=== PATIENT | male | born 1960 | race Caucasian/White ===

== ENCOUNTER 2019-03-26 14:39 | Inpatient (IN) | payer BC ==
[~2019-03-26] VITALS: Ht 175.3 cm; Wt 75.8 kg
[~2019-03-26 14:39] MED LIST: ASPI-1071 PO; CLOP75TA33 PO; DOCU100C41 PO; FLO0.4C PO; METO50TA16 PO; NICO-631 TD; PRED20TA PO; SIMV20TA5 PO
[2019-03-26] MEDS ORDERED: nitroGLYCERIN 0.4mg SUBLingual tab SL PRN (14:50)
[2019-03-26] MEDS ORDERED: aspirin 81mg tab.chew PO ONE (14:50)
[2019-03-26] MEDS ORDERED: LIDOcaine Viscous 15ml cup MM PRN (15:15)
[2019-03-26] MEDS ORDERED: sucralfate 1gm/10ml UD suspension PO ONE (15:15)
[2019-03-26] MEDS ORDERED: pantoprazole 40 MG vial IV ONE (15:15)
[2019-03-26] MEDS ORDERED: famotidine/PF 10 mg/ml inj IV ONE (15:15)
[2019-03-26] MEDS ORDERED: mag hydrox/Alum hydrox/simeth 30ml oral suspension PO ONE (15:15)
[2019-03-26] MEDS ORDERED: sucralfate 1gm/10ml UD suspension PO SCH (15:15)
[2019-03-26] MEDS ORDERED: ESOMEPRAZOLE 40 MG VIAL IV STA (15:34)
--- NOTE | 2019-03-26 15:34 | NUR ---
protonix out of stock per pharmacy,Dr. Mitchell ordered nexium 40mg/ml.
[2019-03-26 15:40] LABS: BASOPHILS % (AUTO) 0.4 % (0-1); EOSINOPHILS # (AUTO) 0.1 X10'3 (0-0.9); EOSINOPHILS % (AUTO) 1.7 % (0-6); HEMATOCRIT 39.4 % (42.0-52.0); HEMOGLOBIN 13.1 g/dl (14.0-17.9); LYMPHOCYTES # (AUTO) 2.4 X10'3 (1.1-4.8); LYMPHOCYTES % (AUTO) 28.9 % (21-51); MEAN CORPUSCULAR HEMOGLOBIN 28.7 PG (27.0-31.0); MEAN CORPUSCULAR HGB CONC 33.2 g/dL (33.0-36.5); MEAN CORPUSCULAR VOLUME 86.5 FL (78-98); MEAN PLATELET VOLUME 7.5 FL (7.4-10.4); MONOCYTES # (AUTO) 0.8 X10'3 (0-0.9); MONOCYTES % (AUTO) 9.9 % (2-12); NEUTROPHILS % (AUTO) 59.1 % (42-75); PLATELET COUNT 179 X10'3 (140-440); RED BLOOD COUNT 4.55 X10'6 (4.70-6.10); RED CELL DISTRIBUTION WIDTH 18.9 % (11.5-14.5); WHITE BLOOD COUNT 8.4 X10'3 (4.5-11.0)
[2019-03-26 15:57] LABS: ALANINE AMINOTRANSFERASE 41 U/L (12-78); ALBUMIN 3.6 G/DL (3.4-5.0); ALBUMIN/GLOBULIN RATIO 0.9 (1.1-1.5); ALKALINE PHOSPHATASE 107 IU/L (46-116); ANION GAP 10 (8-16); ASPARTATE AMINO TRANSFERASE 155 U/L (10-37); BILIRUBIN,TOTAL 0.8 MG/DL (0.1-1.0); BLOOD UREA NITROGEN 9 MG/DL (7-18); BUN/CREATININE RATIO 10.3 (5.4-32.0); CHLORIDE 103 MMOL/L (99-107); CREATININE 0.87 MG/DL (0.60-1.10); GLUCOSE 97 MG/DL (70-104); MAGNESIUM 2.2 MG/DL (1.5-2.4); POTASSIUM 3.9 MMOL/L (3.5-5.1); SODIUM 138 MMOL/L (135-145); TOTAL CARBON DIOXIDE 25.2 MMOL/L (24-32); TOTAL PROTEIN 7.7 G/DL (6.4-8.2); eGFR 90 ML/MIN
[2019-03-26] MEDS ORDERED: heparin 25,000 UNIT/250ml bag 250 ML IV SCH (16:22)
[2019-03-26] MEDS ORDERED: heparin 10,000 units/1 ML INJ IV PRN (16:25)
[2019-03-26] MEDS ORDERED: heparin 10,000 units/1 ML INJ IV ONE ×2 (16:25→16:30)
[2019-03-26] MEDS ORDERED: atorvastatin 20mg tablet PO SCH (16:40)
[2019-03-26] MEDS ORDERED: mag hydrox/Alum hydrox/simeth 30ml oral suspension PO PRN (16:40)
[2019-03-26] MEDS ORDERED: potassium CL 10mEq/100ml bag 100 ML IV PRN (16:40)
[2019-03-26] MEDS ORDERED: magnesium 4gm in 100ml NS 100 ML IV PRN ×2 (16:40→23:20)
[2019-03-26] MEDS ORDERED: magnesium hydroxide 30ml (MOM) UD suspension PO PRN (16:40)
[2019-03-26] MEDS ORDERED: acetaminophen 325mg tablet PO PRN ×3 (16:40→23:20)
[2019-03-26] MEDS ORDERED: normal saline 1000ml 1,000 ML IV SCH (16:40)
[2019-03-26] MEDS ORDERED: magnesium Cl slow-release 64mg tablet PO PRN (16:40)
[2019-03-26] MEDS ORDERED: diphenhydrAMINE 25mg capsule PO PRN (16:40)
[2019-03-26] MEDS ORDERED: morphine 2 MG/ML inj. syringe IV PRN ×2 (16:40)
[2019-03-26] MEDS ORDERED: ondansetron/PF 4mg/2ml inj IV PRN (16:40)
[2019-03-26] MEDS ORDERED: potassium Cl 40MEQ/NS 500ml 500 ML IV PRN (16:40)
[2019-03-26] MEDS ORDERED: potassium Cl 20 mEq SR tablet PO PRN ×3 (16:40→23:20)
[2019-03-26] MEDS ORDERED: HYDROcodone/acetaminophen 5mg/325mg tablet PO PRN (16:40)
[2019-03-26] MEDS ORDERED: HYDROcodone/acetaminophen 10/325mg tab PO PRN ×2 (16:40→23:20)
[2019-03-26] MEDS ORDERED: K and/or MAG REPLACEMENT MC SCH (16:40)
[2019-03-26] MEDS ORDERED: magnesium 2GM in 50ml NS 50 ML IV PRN ×2 (16:40→23:20)
[2019-03-26 16:49] LABS: PARTIAL THROMBOPLASTIN TIME 29 SECONDS (22-32)
--- NOTE | 2019-03-26 16:50 | NUR ---
Dr. Justice at bedside,pt to go to garden labourer,2 piv stared on left ac and left forearm with heparin running 800ml/hr and ns with extension tubing.+ chapis's test,patient has history of 2 femoral stents.
[2019-03-26] MEDS ORDERED: iohexol 350 MG/1 ML 200ml bottle ONE (16:54)
[2019-03-26] MEDS ORDERED: midazolam 2 mg/2 ml injection ONE (16:54)
[2019-03-26] MEDS ORDERED: LIDOcaine 1% (10mg/ml)w/preservative injection 20ml MDV ONE (16:54)
[2019-03-26] MEDS ORDERED: heparin 1,000unit/ml 10ml vial 10 ML ONE (16:54)
[2019-03-26] MEDS ORDERED: fentaNYL/PF 50MCG/1 ML 2ML syringe ONE (16:54)
[2019-03-26] MEDS ORDERED: nitroGLYCERIN-Tridil 50MG/D5W 250 ML IV ONE (16:56)
[2019-03-26] MEDS ORDERED: verapamil 2.5 mg/ml inj IV ONE (16:56)
--- NOTE | 2019-03-26 17:06 | NUR ---
general laborer RNa t bedside taking patient to general laborer.
[2019-03-26] MEDS ORDERED: dextrose 50%-water 50ml dispensing syringe IV PRN ×2 (18:30→23:20)
[2019-03-26] MEDS ORDERED: NUT.TX.IMPAIRED DIGEST FXN (Ensure Clear) 237 ML PO ONE (18:30)
[2019-03-26] MEDS ORDERED: vancomycin/NS 1 GM ADD-VANTAGE 250 ML IV ONE (18:30)
[2019-03-26] MEDS ORDERED: insulin glargine (Lantus) pen - multi-dose SQ PRN (18:30)
[2019-03-26] MEDS ORDERED: MESSAGE TO NURSING PO ONE ×4 (18:30)
[2019-03-26] MEDS ORDERED: gabapentin 400mg capsule PO ONE (18:30)
[2019-03-26] MEDS ORDERED: cefazolin/dext.iso 2gm/100ml 100 ML IV ONE (18:45)
[2019-03-26] MEDS ORDERED: papaverine 30 mg/ml 2ml inj. ONE (19:00)
[2019-03-26] MEDS ORDERED: heparin 10,000 units/1 ML INJ ONE (19:00)
[2019-03-26] MEDS ORDERED: ROPIVAcaine 0.5% (5mg/ml) 30ml vial ONE (19:05)
[2019-03-26] MEDS ORDERED: MIDAZolam 1mg/ml 10ml vial ONE (19:10)
[2019-03-26] MEDS ORDERED: rocuronium 10mg/ml inj IV ONE ×2 (19:10)
[2019-03-26] MEDS ORDERED: SUFENTANIL CITRATE 50 MCG/ML 2ml ampule IV ONE (19:10)
[2019-03-26] MEDS ORDERED: sodium bicarbonate (8.4%) 1 mEq/ml syringe ONE (19:15)
[2019-03-26] MEDS ORDERED: calcium chloride 100 MG/1 ML inj IV ONE (19:15)
[2019-03-26] MEDS ORDERED: sevoflurane 250ml liquid IH ONE (19:15)
[2019-03-26] MEDS ORDERED: magnesium 1 GM/2 ML inj ONE (19:15)
[2019-03-26] MEDS ORDERED: phenylephrine 10mg/ml inj. ONE (19:15)
[2019-03-26] MEDS ORDERED: potassium Cl 2 mEq/ml inj IV ONE (19:15)
[2019-03-26] MEDS ORDERED: LIDOcaine 2% (20 mg/ml) 5ml cardiac syringe ONE (19:15)
[2019-03-26] MEDS ORDERED: albumin (human) 25% 100 ML IV solution IV ONE (19:15)
[2019-03-26] MEDS ORDERED: aminocaproic acid 250 MG/1 ML inj. ONE (19:15)
[2019-03-26] MEDS ORDERED: heparin 1,000 units/ml 10ml inj ONE (19:15)
[2019-03-26] MEDS ORDERED: NORepinephrine bitartrate 8 MG in NS 250 ML BAG (32 mcg/ml) IV ONE (19:15)
[2019-03-26] MEDS ORDERED: methylPREDNISolone sod succ 1000mg vial ONE (19:15)
[2019-03-26] MEDS ORDERED: protamine sulf. 10mg/ml inj. IV ONE (19:15)
[2019-03-26] MEDS ORDERED: ePHEDrine 50MG/ML INJ. ONE (19:16)
[2019-03-26] MEDS ORDERED: propofol inj 20 ML IV ONE (19:16)
[2019-03-26] MEDS ORDERED: mupirocin 2% nasal ointment 1gm UD NS SCH (20:00)
[2019-03-26] MEDS ORDERED: carVEDilol 3.125mg tablet PO SCH (20:00)
[2019-03-26] MEDS ORDERED: metoprolol tartrate 12.5mg (1/2 tablet) PO SCH (20:00)
[2019-03-26 20:10] LABS: ABG BASE EXCESS -0.8 mmol/L (-2.0-3.0); ABG HCO3 23.2 mmol/L (22.0-26.0); ABG OXYGEN SATURATION 99.6 % (95-98); ABG PCO2 36.2 mmHg (35.0-45.0); ABG PH 7.425 (7.350-7.450); ABG PO2 329.7 mmHg (60.0-100.0); CL (ABG) 106 mmol/L (99-107); FCOHb 1.8 % (0.5-1.5); FMetHb 0.1 % (0.3-1.12); FO2Hb 97.7 % (94-100); GLUCOSE (ABG) 97 mg/dl (70-105); IONIZED CA (ABG) 1.11 mmol/L (1.03-1.32); K (ABG) 3.6 mmol/L (3.3-5.1); NA (ABG) 138 mmol/L (135-145); TOTAL HEMOGLOBIN 12.6 G/dl (14.0-18.0)
[2019-03-26 20:55] LABS: ABG BASE EXCESS VENOUS -2.1 mmol/L; ABG HCO3 VENOUS 23.3 mmol/L; ABG PCO2 VENOUS 42.1 mmHg; ABG PO2 VENOUS 40.6 mmHg; CL (ABG) 105 mmol/L (99-107); FCOHb VENOUS 1.8 %; FHHb VENOUS 27.3 %; FMetHb VENOUS 0.3 %; FO2Hb VENOUS 70.6 %; GLUCOSE (ABG) 111 mg/dl (70-105); IONIZED CA (ABG) 1.13 mmol/L (1.03-1.32); K (ABG) 3.5 mmol/L (3.3-5.1); NA (ABG) 134 mmol/L (135-145); TOTAL HEMOGLOBIN 12.4 G/dl (14.0-18.0)
[2019-03-26 21:25] LABS: ABG BASE EXCESS -1.3 mmol/L (-2.0-3.0); ABG HCO3 22.9 mmol/L (22.0-26.0); ABG OXYGEN SATURATION 99.7 % (95-98); ABG PCO2 36.6 mmHg (35.0-45.0); ABG PH 7.415 (7.350-7.450); ABG PO2 411.7 mmHg (60.0-100.0); CL (ABG) 103 mmol/L (99-107); FCOHb 1.4 % (0.5-1.5); FMetHb 0.3 % (0.3-1.12); GLUCOSE (ABG) 101 mg/dl (70-105); IONIZED CA (ABG) 0.97 mmol/L (1.03-1.32); K (ABG) 4.7 mmol/L (3.3-5.1); NA (ABG) 130 mmol/L (135-145); TOTAL HEMOGLOBIN 9.6 G/dl (14.0-18.0)
[2019-03-26] MEDS ORDERED: desmopressin inj. 21 MCG in normal saline 100ml IV soln 94.75 ML IV ONE (21:45)
[2019-03-26 21:46] LABS: ABG BASE EXCESS -2.3 mmol/L (-2.0-3.0); ABG OXYGEN SATURATION 99.2 % (95-98); ABG PCO2 41.7 mmHg (35.0-45.0); ABG PO2 413.9 mmHg (60.0-100.0); CL (ABG) 104 mmol/L (99-107); FCOHb 0.3 % (0.5-1.5); FMetHb 0.4 % (0.3-1.12); FO2Hb 98.5 % (94-100); GLUCOSE (ABG) 132 mg/dl (70-105); IONIZED CA (ABG) 0.96 mmol/L (1.03-1.32); K (ABG) 5.1 mmol/L (3.3-5.1); NA (ABG) 133 mmol/L (135-145); TOTAL HEMOGLOBIN 10.3 G/dl (14.0-18.0)
[2019-03-26 22:10] LABS: ABG BASE EXCESS 1.3 mmol/L (-2.0-3.0); ABG HCO3 25.3 mmol/L (22.0-26.0); ABG OXYGEN SATURATION 99.1 % (95-98); ABG PCO2 37.6 mmHg (35.0-45.0); ABG PH 7.446 (7.350-7.450); ABG PO2 355.8 mmHg (60.0-100.0); CL (ABG) 102 mmol/L (99-107); FCOHb 0.9 % (0.5-1.5); FMetHb 0.6 % (0.3-1.12); FO2Hb 97.6 % (94-100); GLUCOSE (ABG) 121 mg/dl (70-105); IONIZED CA (ABG) 1.06 mmol/L (1.03-1.32); K (ABG) 4.7 mmol/L (3.3-5.1); NA (ABG) 134 mmol/L (135-145); TOTAL HEMOGLOBIN 8.4 G/dl (14.0-18.0)
[2019-03-26 22:40] LABS: ABG HCO3 VENOUS 24.8 mmol/L; ABG PCO2 VENOUS 46.5 mmHg; ABG PO2 VENOUS 38.3 mmHg; CL (ABG) 106 mmol/L (99-107); FCOHb VENOUS 1.3 %; FHHb VENOUS 32.5 %; FMetHb VENOUS 0.4 %; FO2Hb VENOUS 65.8 %; GLUCOSE (ABG) 129 mg/dl (70-105); IONIZED CA (ABG) 1.51 mmol/L (1.03-1.32); K (ABG) 4.5 mmol/L (3.3-5.1); NA (ABG) 135 mmol/L (135-145); TOTAL HEMOGLOBIN 9.2 G/dl (14.0-18.0)
[2019-03-26] MEDS ORDERED: DOPamine 400mg/D5W 250ml 250 ML IV PRN (23:18)
[2019-03-26] MEDS ORDERED: niCARDipine-NS 40mg/200ml IVPB 200 ML IV PRN (23:18)
[2019-03-26] MEDS ORDERED: sodium chloride 0.45% 1,000 ML IV SCH (23:18)
[2019-03-26] MEDS ORDERED: NORepinephrine 8mg/ 250ml NS 250 ML IV PRN (23:18)
[2019-03-26] MEDS ORDERED: nitroGLYCERIN-Tridil 50MG/D5W 250 ML IV PRN (23:18)
[2019-03-26] MEDS ORDERED: albumin (Human) 5% 250ml 250 ML IV ONE ×2 (23:19)
[2019-03-26] MEDS: pantoprazole 40 MG vial IV ONE (23:20)
[2019-03-26] MEDS ORDERED: Neutra Phos packet PO PRN (23:20)
[2019-03-26] MEDS ORDERED: insulin regular, human inj. 100 UNITS in normal saline 100ml IV soln 100 ML IV SCH ×2 (23:20)
[2019-03-26] MEDS ORDERED: normal saline 250ml IV soln 250 ML IV PRN (23:20)
[2019-03-26] MEDS ORDERED: morphine 4 MG/ML inj SYRINge IV PRN (23:20)
[2019-03-26] MEDS ORDERED: metoclopramide 5 mg/ml inj IV PRN (23:20)
[2019-03-26] MEDS ORDERED: albumin (Human) 5% 250ml 250 ML IV PRN (23:20)
[2019-03-26] MEDS ORDERED: sodium phosphate inj. 15 MMOL in dextrose 5%-water 150 ML IV PRN (23:20)
[2019-03-26] MEDS ORDERED: sodium phosphate inj. 30 MMOL in dextrose 5%-water 250 ML IV PRN (23:20)
--- NOTE | 2019-03-26 23:30 | NUR ---
Received to room 2040, accompanied by MDs and surgical crew. Placed on ventilator, to photographer still, arterial line and PA line pressure monitored. Chest tubes to suction at 20 cm. Santiago cath to gravity drainage. Dressings are dry and intact. See assessment record. All vasoactive drugs are infusing via central line.
[2019-03-26 23:45] VITALS: BP 134/95
[2019-03-26 23:47] LABS: BASOPHILS % (AUTO) 0.3 % (0-1); EOSINOPHILS # (AUTO) 0.2 X10'3 (0-0.9); EOSINOPHILS % (AUTO) 1.7 % (0-6); HEMOGLOBIN 7.3 g/dl (14.0-17.9); LYMPHOCYTES # (AUTO) 2.2 X10'3 (1.1-4.8); LYMPHOCYTES % (AUTO) 22.6 % (21-51); MEAN CORPUSCULAR HEMOGLOBIN 29.3 PG (27.0-31.0); MEAN CORPUSCULAR HGB CONC 33.5 g/dL (33.0-36.5); MEAN CORPUSCULAR VOLUME 87.6 FL (78-98); MONOCYTES # (AUTO) 0.4 X10'3 (0-0.9); MONOCYTES % (AUTO) 4.4 % (2-12); NEUTROPHILS # (AUTO) 6.9 X10'3 (1.8-7.7); PLATELET COUNT 184 X10'3 (140-440); RED BLOOD COUNT 2.48 X10'6 (4.70-6.10); WHITE BLOOD COUNT 9.7 X10'3 (4.5-11.0)
[2019-03-26] MEDS: insulin regular, human 100 UNIT in normal saline 100ml IV soln 100 ML IV SCH ×2 (23:47)
[2019-03-26 23:50] LABS: HEMATOCRIT 21.7 % (42.0-52.0)
[2019-03-26 23:51] LABS: ABG BASE EXCESS -0.7 mmol/L (-2.0-3.0); ABG HCO3 25.8 mmol/L (22.0-26.0); ABG PCO2 (T) 50.5 mmHg (35.0-48.0); ABG PO2 (T) 81.3 mmHg (83-108); FCOHb 0.3 % (0.5-1.5); FMetHb 0.2 % (0.3-1.12); FO2Hb 94.5 % (94-100); MINUTE VOLUME 7 L/min; PATIENT TEMPERATURE 35.9; PEEP 5 cm H2O; RESPIRATORY RATE 12 b/min; RESPIRATORY RATE (OBSERVED) 12 b/min; TIDAL VOLUME 500 mL; TOTAL HEMOGLOBIN 7.4 G/dl (14.0-18.0)
[2019-03-26 23:53] VITALS: BP 103/59
[2019-03-27] VITALS (37 sets, daily range): BP systolic 94–125; BP diastolic 41–72
[2019-03-27 00:04] LABS: ALANINE AMINOTRANSFERASE 29 U/L (12-78); ALBUMIN 3.4 G/DL (3.4-5.0); ALBUMIN/GLOBULIN RATIO 1.4 (1.1-1.5); ALKALINE PHOSPHATASE 54 IU/L (46-116); ANION GAP 7 (8-16); ASPARTATE AMINO TRANSFERASE 102 U/L (10-37); BILIRUBIN,TOTAL 0.8 MG/DL (0.1-1.0); BLOOD UREA NITROGEN 12 MG/DL (7-18); BUN/CREATININE RATIO 14.3 (5.4-32.0); CALCIUM 8.7 MG/DL (8.5-10.1); CHLORIDE 108 MMOL/L (99-107); CREATININE 0.84 MG/DL (0.60-1.10); GLUCOSE 167 MG/DL (70-104); MAGNESIUM 3.5 MG/DL (1.5-2.4); POTASSIUM 4.1 MMOL/L (3.5-5.1); SODIUM 141 MMOL/L (135-145); TOTAL CARBON DIOXIDE 26.1 MMOL/L (24-32); TOTAL PROTEIN 5.8 G/DL (6.4-8.2); eGFR > 90 ML/MIN
[2019-03-27] MEDS: morphine 4 MG/ML inj SYRINge IV PRN ×6 (00:05→21:13)
[2019-03-27] MEDS: potassium Cl 20mEq/100mL bag 100 ML IV PRN ×2 (00:48→03:54)
[2019-03-27 01:02] LABS: PARTIAL THROMBOPLASTIN TIME 29 SECONDS (22-32)
[2019-03-27] MEDS: ceFAZolin 1GM/D5W- ADD-VANTAGE 50 ML IV SCH ×3 (02:13→19:23)
[2019-03-27] MEDS: ketorolac tromethamine 15mg/ml inj. IV SCH ×4 (02:13→19:24)
[2019-03-27] MEDS: pantoprazole 40 MG vial IV ONE (04:34)
[2019-03-27 04:51] LABS: ABG BASE EXCESS -0.2 mmol/L (-2.0-3.0); ABG HCO3 24.5 mmol/L (22.0-26.0); ABG OXYGEN SATURATION 97.5 % (95-98); ABG PCO2 (T) 39.3 mmHg (35.0-48.0); ALLEN'S TEST Positive; FCOHb 0.3 % (0.5-1.5); FMetHb 0.1 % (0.3-1.12); FO2Hb 97.1 % (94-100); MINUTE VOLUME 9 L/min; PATIENT TEMPERATURE 36.5; PEEP 5 cm H2O; TOTAL HEMOGLOBIN 8.9 G/dl (14.0-18.0)
[2019-03-27] MEDS: vancomycin/NS 1 GM ADD-VANTAGE 250 ML IV SCH ×2 (05:56→19:23)
[2019-03-27 06:50] LABS: BASOPHILS % (AUTO) 0.2 % (0-1); EOSINOPHILS % (AUTO) 0 % (0-6); HEMATOCRIT 23.6 % (42.0-52.0); HEMOGLOBIN 8.1 g/dl (14.0-17.9); LYMPHOCYTES % (AUTO) 10.9 % (21-51); MEAN CORPUSCULAR HEMOGLOBIN 30.3 PG (27.0-31.0); MEAN CORPUSCULAR HGB CONC 34.5 g/dL (33.0-36.5); MEAN CORPUSCULAR VOLUME 87.9 FL (78-98); MEAN PLATELET VOLUME 7.5 FL (7.4-10.4); MONOCYTES # (AUTO) 0.5 X10'3 (0-0.9); MONOCYTES % (AUTO) 5.2 % (2-12); NEUTROPHILS # (AUTO) 7.6 X10'3 (1.8-7.7); NEUTROPHILS % (AUTO) 83.7 % (42-75); PLATELET COUNT 216 X10'3 (140-440); RED BLOOD COUNT 2.68 X10'6 (4.70-6.10); RED CELL DISTRIBUTION WIDTH 18.4 % (11.5-14.5); WHITE BLOOD COUNT 9.1 X10'3 (4.5-11.0)
--- NOTE | 2019-03-27 06:55 | NUR ---
Problems reprioritized. Patient report given, questions answered & plan of care reviewed with Milan KONG. Pt given 2 units PRBC and plts during this shift. Dopamine off, Levophed reduced to 2mcg. Pt was extubated at 0500 and is on 2L NC currently. Chest tube output marked at 700ml. Last CI at 0500 was 2.2.
--- NOTE | 2019-03-27 06:55 | NUR ---
Patient in room ICU 2040. I have received report from Erika KONG and had the opportunity to ask questions and assume patient care.
[2019-03-27 07:06] LABS: ALANINE AMINOTRANSFERASE 30 U/L (12-78); ALBUMIN 3.3 G/DL (3.4-5.0); ALBUMIN/GLOBULIN RATIO 1.2 (1.1-1.5); ALKALINE PHOSPHATASE 57 IU/L (46-116); ANION GAP 7 (8-16); ASPARTATE AMINO TRANSFERASE 101 U/L (10-37); BILIRUBIN,DIRECT 0.3 MG/DL (0-0.3); BILIRUBIN,TOTAL 1.7 MG/DL (0.1-1.0); BLOOD UREA NITROGEN 13 MG/DL (7-18); BUN/CREATININE RATIO 13.7 (5.4-32.0); CALCIUM 8.2 MG/DL (8.5-10.1); CHLORIDE 110 MMOL/L (99-107); CREATININE 0.95 MG/DL (0.60-1.10); GLUCOSE 137 MG/DL (70-104); MAGNESIUM 2.5 MG/DL (1.5-2.4); PHOSPHORUS 2.6 MG/DL (2.3-4.5); POTASSIUM 4.4 MMOL/L (3.5-5.1); SODIUM 144 MMOL/L (135-145); TOTAL CARBON DIOXIDE 26.6 MMOL/L (24-32); eGFR 81 ML/MIN
[2019-03-27 07:19] LABS: PARTIAL THROMBOPLASTIN TIME 27 SECONDS (22-32)
[2019-03-27] MEDS: ondansetron/PF 4mg/2ml inj IV PRN ×3 (07:44→19:39)
[2019-03-27] MEDS: docusate sod 100mg capsule PO SCH ×2 (07:46→19:24)
[2019-03-27] MEDS: atorvastatin 10mg tablet PO SCH (07:46)
[2019-03-27] MEDS: gabapentin 300mg capsule PO SCH ×3 (07:46→20:15)
[2019-03-27] MEDS: tamsulosin 0.4mg capsule PO SCH (07:46)
[2019-03-27] MEDS: metoprolol tartrate 12.5mg (1/2 tablet) PO SCH ×2 (07:46→20:00)
[2019-03-27] MEDS ORDERED: aspirin 81mg tablet.DR PO SCH (08:00)
[2019-03-27] MEDS ORDERED: lisinopril 10 MG tablet PO SCH (08:00)
[2019-03-27] MEDS: mupirocin 2% nasal ointment 1gm UD NS SCH ×2 (08:00→19:24)
[2019-03-27] MEDS ORDERED: aspirin 325mg tablet, delayed-release (Ecotrin) PO SCH (08:00)
--- NOTE | 2019-03-27 08:00 | NUR ---
Dr. Justice rounded on patient, will have laboratory development technician come and remove Right radial sheath and apply TR band (pressure dressing).
--- NOTE | 2019-03-27 08:15 | NUR ---
Dr. Justice in to round on pt. He was informed of pt's complaint of numbness to right hand. Dr. Justice ordered radial sheath discontinued by Buffer Copper RN. DILAN Eubanks discontinued radial sheath. Pressure by radial cuff device.
--- NOTE | 2019-03-27 09:30 | NUR ---
Glen BAUTISTA, rounded on patient.
[2019-03-27] MEDS: HYDROcodone/acetaminophen 10/325mg tab PO PRN ×2 (09:56→15:38)
[2019-03-27] MEDS ORDERED: MESSAGE TO NURSING PO ONE (10:00)
--- NOTE | 2019-03-27 10:14 | NUR ---
CABG Consult: Pt will need CABG ed once stable prior to d/c. Addendum: 03/27/19 at [address] Amended: Links added.
--- NOTE | 2019-03-27 10:15 | NUR ---
Pressure dressing removed from Right wrist. Patient still complains of Right 1st and 2nd digit numbness in hand. Will continue to monitor.
[2019-03-27] MEDS: insulin Lispro (HumaLOG) vial - multi-dose SQ SCH ×3 (12:12→18:00)
[2019-03-27 14:24] LABS: BASOPHILS % (AUTO) 0.2 % (0-1); EOSINOPHILS % (AUTO) 0 % (0-6); HEMATOCRIT 22.2 % (42.0-52.0); HEMOGLOBIN 7.4 g/dl (14.0-17.9); LYMPHOCYTES # (AUTO) 1.6 X10'3 (1.1-4.8); MEAN CORPUSCULAR HEMOGLOBIN 29.2 PG (27.0-31.0); MEAN CORPUSCULAR HGB CONC 33.2 g/dL (33.0-36.5); MEAN CORPUSCULAR VOLUME 88.1 FL (78-98); MEAN PLATELET VOLUME 7.8 FL (7.4-10.4); MONOCYTES # (AUTO) 0.9 X10'3 (0-0.9); MONOCYTES % (AUTO) 6.9 % (2-12); NEUTROPHILS # (AUTO) 10.1 X10'3 (1.8-7.7); NEUTROPHILS % (AUTO) 79.9 % (42-75); PLATELET COUNT 189 X10'3 (140-440); RED BLOOD COUNT 2.52 X10'6 (4.70-6.10); RED CELL DISTRIBUTION WIDTH 18.8 % (11.5-14.5); WHITE BLOOD COUNT 12.7 X10'3 (4.5-11.0)
--- NOTE | 2019-03-27 18:23 | NUR ---
Patient report given, questions answered & plan of care reviewed with DILAN Lopez.
--- NOTE | 2019-03-27 18:30 | NUR ---
Patient in room ICU 2040. I have received report from Milan KONG and had the opportunity to ask questions and assume patient care.
[2019-03-27 22:34] LABS: BASOPHILS % (AUTO) 0.2 % (0-1); EOSINOPHILS % (AUTO) 0 % (0-6); LYMPHOCYTES # (AUTO) 1.8 X10'3 (1.1-4.8); LYMPHOCYTES % (AUTO) 15.9 % (21-51); MEAN CORPUSCULAR HEMOGLOBIN 29.7 PG (27.0-31.0); MEAN CORPUSCULAR HGB CONC 33.5 g/dL (33.0-36.5); MEAN CORPUSCULAR VOLUME 88.8 FL (78-98); MEAN PLATELET VOLUME 7.8 FL (7.4-10.4); MONOCYTES % (AUTO) 8.7 % (2-12); NEUTROPHILS # (AUTO) 8.6 X10'3 (1.8-7.7); NEUTROPHILS % (AUTO) 75.2 % (42-75); PLATELET COUNT 157 X10'3 (140-440); RED BLOOD COUNT 2.21 X10'6 (4.70-6.10); RED CELL DISTRIBUTION WIDTH 18.7 % (11.5-14.5); WHITE BLOOD COUNT 11.5 X10'3 (4.5-11.0)
[2019-03-27 22:40] LABS: HEMATOCRIT 19.6 % (42.0-52.0); HEMOGLOBIN 6.6 g/dl (14.0-17.9)
--- NOTE | 2019-03-27 23:18 | NUR ---
Pt is still not following directions on proper sternal precautions. He is still using his arms when trying to move himself around in bed, even though he has been informed multiple times throughout the shift to stop using his arms and to instead call the nurse and let us move him. Will continue to educate and assist when seeing the patient improperly positioning himself.
[2019-03-28] VITALS (22 sets, daily range): BP systolic 97–130; BP diastolic 51–78
[2019-03-28] MEDS: morphine 4 MG/ML inj SYRINge IV PRN ×6 (00:26→21:05)
[2019-03-28] MEDS: ceFAZolin 1GM/D5W- ADD-VANTAGE 50 ML IV SCH ×2 (01:57→10:43)
[2019-03-28 02:51] LABS: BASOPHILS % (AUTO) 0.2 % (0-1); EOSINOPHILS % (AUTO) 0 % (0-6); HEMATOCRIT 26.3 % (42.0-52.0); LYMPHOCYTES # (AUTO) 1.6 X10'3 (1.1-4.8); LYMPHOCYTES % (AUTO) 17.8 % (21-51); MEAN CORPUSCULAR HGB CONC 34.2 g/dL (33.0-36.5); MEAN CORPUSCULAR VOLUME 87.8 FL (78-98); MEAN PLATELET VOLUME 8.2 FL (7.4-10.4); MONOCYTES % (AUTO) 11.1 % (2-12); NEUTROPHILS # (AUTO) 6.4 X10'3 (1.8-7.7); NEUTROPHILS % (AUTO) 70.9 % (42-75); PLATELET COUNT 133 X10'3 (140-440); RED CELL DISTRIBUTION WIDTH 17.5 % (11.5-14.5); WHITE BLOOD COUNT 9.1 X10'3 (4.5-11.0)
[2019-03-28 03:07] LABS: POTASSIUM 4.5 MMOL/L (3.5-5.1); SODIUM 136 MMOL/L (135-145)
[2019-03-28 03:34] LABS: ALBUMIN 3.2 G/DL (3.4-5.0); ANION GAP 6 (8-16); BLOOD UREA NITROGEN 14 MG/DL (7-18); BUN/CREATININE RATIO 15.6 (5.4-32.0); CALCIUM 7.8 MG/DL (8.5-10.1); CHLORIDE 102 MMOL/L (99-107); GLUCOSE 152 MG/DL (70-104); MAGNESIUM 2.2 MG/DL (1.5-2.4); PHOSPHORUS 4.6 MG/DL (2.3-4.5); TOTAL CARBON DIOXIDE 28.2 MMOL/L (24-32); eGFR 86 ML/MIN
[2019-03-28] MEDS: insulin regular, human 100 UNIT in normal saline 100ml IV soln 100 ML IV SCH ×2 (03:49)
[2019-03-28 05:11] LABS: ACT @ 1.70 U 378 SEC (193-297); ACT @ 2.84 U 556 SEC (260-420); BASELINE ACT 180 SEC (101-148); PATIENT WEIGHT 70.0k KG
[2019-03-28 05:11] LABS: ACTIVATED CLOTTING TIME 127 SEC (101-148)
--- NOTE | 2019-03-28 06:23 | NUR ---
Problems reprioritized. Patient report given, questions answered & plan of care reviewed with []. Addendum: 03/28/19 at 0624 by Joseph Saleh RN Patient report received from DILAN Lopez. Patient care assumed.
[2019-03-28] MEDS: vancomycin/NS 1 GM ADD-VANTAGE 250 ML IV SCH (06:47)
[2019-03-28] MEDS: pantoprazole 40mg Tablet.DR PO SCH (06:47)
[2019-03-28] MEDS: aspirin 81mg tablet.DR PO SCH (08:03)
[2019-03-28] MEDS: gabapentin 300mg capsule PO SCH ×3 (08:03→21:04)
[2019-03-28] MEDS: atorvastatin 10mg tablet PO SCH (08:03)
[2019-03-28] MEDS: magnesium hydroxide 30ml (MOM) UD suspension PO PRN (08:05)
[2019-03-28] MEDS: mupirocin 2% nasal ointment 1gm UD NS SCH ×2 (08:05→21:04)
[2019-03-28] MEDS: tamsulosin 0.4mg capsule PO SCH (08:05)
[2019-03-28] MEDS: metoprolol tartrate 12.5mg (1/2 tablet) PO SCH ×2 (08:05→19:13)
[2019-03-28] MEDS: docusate sod 100mg capsule PO SCH ×2 (08:05→19:13)
[2019-03-28] MEDS: oxyCODONE IR 5mg (immed. release) tablet PO PRN ×4 (08:05→23:10)
[2019-03-28] MEDS: ondansetron/PF 4mg/2ml inj IV PRN ×2 (08:31→19:12)
[2019-03-28] MEDS: insulin Lispro (HumaLOG) vial - multi-dose SQ SCH (09:00)
[2019-03-28] MEDS ORDERED: CARV3.122 PO (10:29)
[2019-03-28] MEDS ORDERED: LISI-600 PO (10:29)
[2019-03-28] MEDS ORDERED: TEMA15CA PO (10:31)
[2019-03-28] MEDS ORDERED: PANT40TA4 PO (10:32)
[2019-03-28] MEDS ORDERED: potassium CL 10mEq/100ml bag 100 ML IV PRN (12:25)
[2019-03-28] MEDS ORDERED: potassium Cl 40MEQ/NS 500ml 500 ML IV PRN (12:25)
[2019-03-28] MEDS ORDERED: magnesium 2GM in 50ml NS 50 ML IV PRN (12:25)
[2019-03-28] MEDS ORDERED: potassium Cl 20 mEq SR tablet PO PRN ×2 (12:25)
[2019-03-28] MEDS ORDERED: magnesium 4gm in 100ml NS 100 ML IV PRN (12:25)
--- NOTE | 2019-03-28 13:55 | NUR ---
Report given to Randal RN on ACCE unit. Patient to be transferred to room 315 with belongings with 4L by NC, and cardiac monitoring.
--- NOTE | 2019-03-28 14:15 | NUR ---
Patient transferred to ACCE unit to room 315 with belongings on cardiac monitoring with 4L NC. Met receiving RN at bedside.
--- NOTE | 2019-03-28 15:12 | NUR ---
Pt arrived to department. Oriented to room, placed on monitor. Call light within reach. 2 RN skin check complete.
--- NOTE | 2019-03-28 19:11 | NUR ---
The patient had Oxy IR shortly after 1700 and is still 10/10 pain groaning and holding breath. Gave morphine per order.
[2019-03-28] MEDS: magnesium Cl slow-release 64mg tablet PO SCH (19:12)
--- NOTE | 2019-03-28 19:30 | NUR ---
Pt states relief from 10/10 pain to 3/10 pain from morphine.
[2019-03-28] MEDS: potassium Cl 20 mEq SR tablet PO SCH (20:00)
--- NOTE | 2019-03-28 21:02 | NUR ---
Patient c/o 10/.10 pain again in incision and chest tube areas. No s/s of complications to sites. Gave another dose of morphine IV per order.
--- NOTE | 2019-03-28 21:35 | NUR ---
Morphine effective to bring pain down to 4/10.
[2019-03-28] MEDS: temazepam 15mg capsule PO PRN (23:09)
[2019-03-29] VITALS (7 sets, daily range): BP systolic 92–119; BP diastolic 53–80
--- NOTE | 2019-03-29 00:17 | NUR ---
Oxy IR not effective for pain relief patient is holding breath per respiratory and not breathing as effectively as he could HR goes up and Sats go down due to 9/10 pain. Will give another dose of morphine per order.
[2019-03-29] MEDS: morphine 4 MG/ML inj SYRINge IV PRN ×2 (00:24→01:58)
[2019-03-29] MEDS: ondansetron/PF 4mg/2ml inj IV PRN ×3 (01:57→19:15)
[2019-03-29] MEDS: oxyCODONE IR 5mg (immed. release) tablet PO PRN ×4 (04:44→23:27)
[2019-03-29] MEDS ORDERED: amiodarone 150mg/dext, iso-os 100 ML IV ONE (04:50)
[2019-03-29 05:42] LABS: ALBUMIN 3.1 G/DL (3.4-5.0); ANION GAP 5 (8-16); BLOOD UREA NITROGEN 18 MG/DL (7-18); BUN/CREATININE RATIO 20.7 (5.4-32.0); CALCIUM 8.1 MG/DL (8.5-10.1); CHLORIDE 100 MMOL/L (99-107); CREATININE 0.87 MG/DL (0.60-1.10); GLUCOSE 117 MG/DL (70-104); MAGNESIUM 2.3 MG/DL (1.5-2.4); POTASSIUM 4.4 MMOL/L (3.5-5.1); SODIUM 132 MMOL/L (135-145); TOTAL CARBON DIOXIDE 26.8 MMOL/L (24-32); eGFR 90 ML/MIN
[2019-03-29 05:59] LABS: BASOPHILS % (AUTO) 0.2 % (0-1); EOSINOPHILS % (AUTO) 0.2 % (0-6); HEMATOCRIT 25.8 % (42.0-52.0); HEMOGLOBIN 8.9 g/dl (14.0-17.9); LYMPHOCYTES # (AUTO) 1.8 X10'3 (1.1-4.8); LYMPHOCYTES % (AUTO) 24.9 % (21-51); MEAN CORPUSCULAR HEMOGLOBIN 30.4 PG (27.0-31.0); MEAN CORPUSCULAR HGB CONC 34.5 g/dL (33.0-36.5); MONOCYTES # (AUTO) 0.9 X10'3 (0-0.9); NEUTROPHILS # (AUTO) 4.7 X10'3 (1.8-7.7); NEUTROPHILS % (AUTO) 62.7 % (42-75); PLATELET COUNT 130 X10'3 (140-440); RED BLOOD COUNT 2.93 X10'6 (4.70-6.10); RED CELL DISTRIBUTION WIDTH 17.1 % (11.5-14.5); WHITE BLOOD COUNT 7.4 X10'3 (4.5-11.0)
[2019-03-29] MEDS: amiodarone/D5 360MG/200ML BAG 200 ML IV SCH ×4 (06:29→22:40)
--- NOTE | 2019-03-29 06:30 | NUR ---
Problems reprioritized. Patient report given, questions answered & plan of care reviewed with Sanam KONG.
--- NOTE | 2019-03-29 06:42 | NUR ---
Patient in room MED 315. I have received report from Radha KONG and had the opportunity to ask questions and assume patient care.
--- NOTE | 2019-03-29 06:45 | NUR ---
Patient went into Afib during shift change this morning. Noc shift charge called Glen Moore, orders received to start amiodarone drip with loading dose. Patient converted back to sinus rhythm after the loading dose, Glen Moore aware and stated to keep the drip running today.
[2019-03-29] MEDS ORDERED: furosemide 40mg/4ml inj IV ONE ×2 (06:50→21:30)
[2019-03-29] MEDS: K and/or MAG REPLACEMENT MC SCH (08:00)
[2019-03-29] MEDS: magnesium Cl slow-release 64mg tablet PO SCH ×2 (08:00→20:00)
[2019-03-29] MEDS: potassium Cl 20 mEq SR tablet PO SCH ×3 (08:00→22:26)
[2019-03-29] MEDS: aspirin 81mg tablet.DR PO SCH (08:01)
[2019-03-29] MEDS: tamsulosin 0.4mg capsule PO SCH (08:01)
[2019-03-29] MEDS: metoprolol tartrate 12.5mg (1/2 tablet) PO SCH ×2 (08:01→20:31)
[2019-03-29] MEDS: pantoprazole 40mg Tablet.DR PO SCH (08:01)
[2019-03-29] MEDS: atorvastatin 10mg tablet PO SCH (08:01)
[2019-03-29] MEDS: docusate sod 100mg capsule PO SCH ×3 (08:01→20:31)
[2019-03-29] MEDS: magnesium hydroxide 30ml (MOM) UD suspension PO PRN (08:01)
--- NOTE | 2019-03-29 09:12 | NUR ---
Glen Moore at bedside. Chest tubes removed without incident.
--- NOTE | 2019-03-29 12:30 | NUR ---
Problems reprioritized. Patient report given, questions answered & plan of care reviewed with [].
--- NOTE | 2019-03-29 12:30 | NUR ---
Patient in room MED 315. I have received report from DILAN SORENSON, and had the opportunity to ask questions and assume patient care.
--- NOTE | 2019-03-29 13:01 | NUR ---
Problems reprioritized. Patient report given, questions answered & plan of care reviewed with Jo-Ann KONG.
--- NOTE | 2019-03-29 18:04 | NUR ---
Problems reprioritized. Patient report given, questions answered & plan of care reviewed with DILAN GLASGOW.
--- NOTE | 2019-03-29 18:30 | NUR ---
Patient in room MED 315. I have received report from Jo-Ann KONG and had the opportunity to ask questions and assume patient care.
[2019-03-29] MEDS: temazepam 15mg capsule PO PRN (20:44)
--- NOTE | 2019-03-29 20:55 | NUR ---
Patient back in bed after using restroom at 2039. Monitor showed patient in a-fib, HR 120-130's. BP 120/66 and otherwise asymptomatic. Called Dr. Ortiz at 2054. While on the phone, patient converted back to SR, HR in the 80's. New orders received to give one time dose Lasix IV 40mg, replace K until >4.5 and Mg >2.5. Will continue to monitor
--- NOTE | 2019-03-29 21:15 | NUR ---
Patient's O2 maintaining in the mid 90's on 4LNC. Decreased to 3LNC and will continue to monitor.
[2019-03-29] MEDS ORDERED: potassium Cl 20 mEq SR tablet PO PRN (22:05)
[2019-03-30] VITALS (10 sets, daily range): BP systolic 91–126; BP diastolic 55–80
[2019-03-30] MEDS: oxyCODONE IR 5mg (immed. release) tablet PO PRN ×2 (03:34→15:32)
[2019-03-30 04:37] LABS: BASOPHILS % (AUTO) 0.3 % (0-1); EOSINOPHILS # (AUTO) 0.1 X10'3 (0-0.9); EOSINOPHILS % (AUTO) 0.7 % (0-6); HEMATOCRIT 26.7 % (42.0-52.0); HEMOGLOBIN 9.2 g/dl (14.0-17.9); LYMPHOCYTES # (AUTO) 2.2 X10'3 (1.1-4.8); LYMPHOCYTES % (AUTO) 28.5 % (21-51); MEAN CORPUSCULAR HEMOGLOBIN 30.3 PG (27.0-31.0); MEAN CORPUSCULAR HGB CONC 34.4 g/dL (33.0-36.5); MEAN CORPUSCULAR VOLUME 88.1 FL (78-98); MONOCYTES # (AUTO) 0.9 X10'3 (0-0.9); MONOCYTES % (AUTO) 11.2 % (2-12); NEUTROPHILS # (AUTO) 4.7 X10'3 (1.8-7.7); NEUTROPHILS % (AUTO) 59.3 % (42-75); PLATELET COUNT 133 X10'3 (140-440); RED BLOOD COUNT 3.03 X10'6 (4.70-6.10); RED CELL DISTRIBUTION WIDTH 17.5 % (11.5-14.5); WHITE BLOOD COUNT 7.9 X10'3 (4.5-11.0)
[2019-03-30 04:48] LABS: ANION GAP 5 (8-16); BLOOD UREA NITROGEN 18 MG/DL (7-18); BUN/CREATININE RATIO 23.1 (5.4-32.0); CALCIUM 7.8 MG/DL (8.5-10.1); CHLORIDE 96 MMOL/L (99-107); CREATININE 0.78 MG/DL (0.60-1.10); GLUCOSE 104 MG/DL (70-104); MAGNESIUM 2.4 MG/DL (1.5-2.4); POTASSIUM 4.1 MMOL/L (3.5-5.1); SODIUM 131 MMOL/L (135-145); TOTAL CARBON DIOXIDE 29.8 MMOL/L (24-32); eGFR > 90 ML/MIN
[2019-03-30] MEDS: ondansetron/PF 4mg/2ml inj IV PRN (05:28)
--- NOTE | 2019-03-30 06:00 | NUR ---
Patient in room MED 315. I have received report from Radha KONG and had the opportunity to ask questions and assume patient care.
[2019-03-30] MEDS: pantoprazole 40mg Tablet.DR PO SCH (07:40)
[2019-03-30] MEDS: atorvastatin 10mg tablet PO SCH (07:40)
[2019-03-30] MEDS: aspirin 81mg tablet.DR PO SCH (07:40)
[2019-03-30] MEDS: potassium Cl 20 mEq SR tablet PO SCH ×2 (07:40→19:16)
[2019-03-30] MEDS: tamsulosin 0.4mg capsule PO SCH (07:40)
[2019-03-30] MEDS: magnesium Cl slow-release 64mg tablet PO SCH ×2 (07:40→19:16)
[2019-03-30] MEDS: metoprolol tartrate 12.5mg (1/2 tablet) PO SCH ×2 (07:41→20:00)
[2019-03-30] MEDS: amiodarone 200mg tablet PO SCH ×2 (07:42→21:17)
[2019-03-30] MEDS: K and/or MAG REPLACEMENT MC SCH (08:00)
[2019-03-30] MEDS: docusate sod 100mg capsule PO SCH ×3 (08:00→21:17)
--- NOTE | 2019-03-30 11:30 | NUR ---
F/u for CABG consult: Pt s/p emergent CABG x 3 seen at bedside given written and verbal nutrition and wound healing after cardiac surgery education. RD contact information provided. Pt endorses a good appetite and denies any food allergies. Pt reports difficulty chewing d/t missing teeth however reports the food he is receiving is soft enough and requires no changes at this time. Pt reports previously with diarrhea r/t receiving stool softeners however now subsided per pt, LBM 03/29. Will continue to follow. Recommendations: 1) Continue with no concentrated sweets diet 2) Monitor need for texture modification 3) Wt per rx Addendum: 03/30/19 at [address] Amended: Links added.
[2019-03-30] MEDS ORDERED: amiodarone 150mg/dext, iso-os 100 ML IV ONE (17:20)
[2019-03-30] MEDS: potassium Cl 20 mEq SR tablet PO PRN ×2 (17:44→22:31)
[2019-03-30] MEDS: magnesium Cl slow-release 64mg tablet PO PRN ×2 (17:44→22:31)
--- NOTE | 2019-03-30 17:45 | NUR ---
Patient went into afib around 170. Notified Glen Moore who ordered an Amiodarone IV bolus. Patient converted back to sinus rhythm immediately following the bolus. Notified Glen again, no further orders at this time.
--- NOTE | 2019-03-30 18:00 | NUR ---
Patient in room MED 315. I have received report from DILAN Marion and had the opportunity to ask questions and assume patient care.
--- NOTE | 2019-03-30 18:53 | NUR ---
Problems reprioritized. Patient report given, questions answered & plan of care reviewed with Ger KONG.
[2019-03-30] MEDS: temazepam 15mg capsule PO PRN (22:04)
[2019-03-31] MEDS: oxyCODONE IR 5mg (immed. release) tablet PO PRN ×4 (01:11→20:39)
[2019-03-31 02:00] VITALS: BP 103/46
[2019-03-31 05:57] LABS: BASOPHILS % (AUTO) 0.3 % (0-1); EOSINOPHILS # (AUTO) 0.1 X10'3 (0-0.9); EOSINOPHILS % (AUTO) 1.3 % (0-6); HEMATOCRIT 26.7 % (42.0-52.0); HEMOGLOBIN 9.1 g/dl (14.0-17.9); LYMPHOCYTES # (AUTO) 2.6 X10'3 (1.1-4.8); LYMPHOCYTES % (AUTO) 33.6 % (21-51); MEAN CORPUSCULAR HEMOGLOBIN 30.4 PG (27.0-31.0); MEAN CORPUSCULAR HGB CONC 33.9 g/dL (33.0-36.5); MEAN CORPUSCULAR VOLUME 89.6 FL (78-98); MEAN PLATELET VOLUME 8.1 FL (7.4-10.4); MONOCYTES % (AUTO) 12.8 % (2-12); PLATELET COUNT 156 X10'3 (140-440); RED BLOOD COUNT 2.98 X10'6 (4.70-6.10); RED CELL DISTRIBUTION WIDTH 17.7 % (11.5-14.5); WHITE BLOOD COUNT 7.7 X10'3 (4.5-11.0)
[2019-03-31 06:00] VITALS: BP 109/69
[2019-03-31 06:06] LABS: ALBUMIN 2.8 G/DL (3.4-5.0); ANION GAP 4 (8-16); BLOOD UREA NITROGEN 13 MG/DL (7-18); BUN/CREATININE RATIO 16.5 (5.4-32.0); CALCIUM 7.9 MG/DL (8.5-10.1); CHLORIDE 99 MMOL/L (99-107); CREATININE 0.79 MG/DL (0.60-1.10); GLUCOSE 97 MG/DL (70-104); MAGNESIUM 2.3 MG/DL (1.5-2.4); POTASSIUM 4.3 MMOL/L (3.5-5.1); SODIUM 131 MMOL/L (135-145); TOTAL CARBON DIOXIDE 28.3 MMOL/L (24-32); eGFR > 90 ML/MIN
--- NOTE | 2019-03-31 06:15 | NUR ---
Problems reprioritized. Patient report given, questions answered & plan of care reviewed with DILAN Hummel.
--- NOTE | 2019-03-31 06:22 | NUR ---
Patient in room MED 315. I have received report from Flory KONG and had the opportunity to ask questions and assume patient care.
[2019-03-31] MEDS: ondansetron/PF 4mg/2ml inj IV PRN ×2 (07:47→14:02)
[2019-03-31] MEDS: potassium Cl 20 mEq SR tablet PO SCH ×2 (07:53→20:37)
[2019-03-31] MEDS: aspirin 81mg tablet.DR PO SCH (07:54)
[2019-03-31] MEDS: pantoprazole 40mg Tablet.DR PO SCH (07:54)
[2019-03-31] MEDS: tamsulosin 0.4mg capsule PO SCH (07:54)
[2019-03-31] MEDS: magnesium Cl slow-release 64mg tablet PO SCH ×2 (07:54→20:37)
[2019-03-31] MEDS: amiodarone 200mg tablet PO SCH ×2 (07:54→20:35)
[2019-03-31] MEDS: metoprolol tartrate 12.5mg (1/2 tablet) PO SCH (07:55)
[2019-03-31] MEDS: K and/or MAG REPLACEMENT MC SCH (08:00)
[2019-03-31] MEDS: docusate sod 100mg capsule PO SCH ×2 (08:00→20:00)
[2019-03-31] MEDS: clopidogrel 75mg tablet PO SCH (09:58)
[2019-03-31] MEDS: metoprolol tartrate 25mg tablet PO SCH (10:01)
[2019-03-31 15:00] VITALS: BP 110/70
[2019-03-31 18:00] VITALS: BP 96/53
--- NOTE | 2019-03-31 18:05 | NUR ---
[place] documentation: I have reviewed and agree with all interventions, assessments performed and documented by Charlotte KONG. [place] Medication Administration: For this medication-pass time frame, all medication were reviewed, dispensed, administered and documented per hospital policy by Charlotte KONG.
--- NOTE | 2019-03-31 18:09 | NUR ---
Problems reprioritized. Patient report given, questions answered & plan of care reviewed with Flory KONG.
--- NOTE | 2019-03-31 18:15 | NUR ---
Patient in room MED 315. I have received report from DILAN Hummel and Charlotte perdomo RN and had the opportunity to ask questions and assume patient care.
--- NOTE | 2019-03-31 19:00 | NUR ---
Patient walked with aid approx 600 ft and tolerated well. No SOB or c/o pain.
--- NOTE | 2019-03-31 20:15 | NUR ---
I noted during bedside report that patient was on room air. His SAO2 was greater than 95%. In the last 5 to 10 minutes the monitor is alarming low SAO2 around 85% then coming back up to WNL. I check on patient and he is going to sleep. I put his oxygen back on at 2L with nasal cannula. Patient now at >95% SAO2, will continue to monitor patient for duration of shift.
[2019-03-31] MEDS: apixaban 5mg tablet PO SCH (20:35)
[2019-03-31] MEDS: metoprolol tartrate 50mg tablet PO SCH (20:38)
[2019-03-31] MEDS ORDERED: atorvastatin 10mg tablet PO SCH (21:00)
[2019-03-31 22:00] VITALS: BP 97/44
[2019-04-01] MEDS: oxyCODONE IR 5mg (immed. release) tablet PO PRN ×2 (01:27→05:37)
[2019-04-01 02:00] VITALS: BP 104/62
[2019-04-01 06:00] VITALS: BP 105/61
--- NOTE | 2019-04-01 06:15 | NUR ---
Problems reprioritized. Patient report given, questions answered & plan of care reviewed with Art, RN.
[2019-04-01 06:57] LABS: ALBUMIN 2.7 G/DL (3.4-5.0); ANION GAP 5 (8-16); BLOOD UREA NITROGEN 13 MG/DL (7-18); BUN/CREATININE RATIO 15.7 (5.4-32.0); CHLORIDE 100 MMOL/L (99-107); CREATININE 0.83 MG/DL (0.60-1.10); GLUCOSE 91 MG/DL (70-104); MAGNESIUM 2.3 MG/DL (1.5-2.4); POTASSIUM 4.6 MMOL/L (3.5-5.1); SODIUM 132 MMOL/L (135-145); eGFR > 90 ML/MIN
[2019-04-01] MEDS: K and/or MAG REPLACEMENT MC SCH (08:00)
[2019-04-01] MEDS: tamsulosin 0.4mg capsule PO SCH (08:19)
[2019-04-01] MEDS: apixaban 5mg tablet PO SCH (08:19)
[2019-04-01] MEDS: pantoprazole 40mg Tablet.DR PO SCH (08:19)
[2019-04-01] MEDS: clopidogrel 75mg tablet PO SCH (08:19)
[2019-04-01] MEDS: docusate sod 100mg capsule PO SCH (08:19)
[2019-04-01] MEDS: aspirin 81mg tablet.DR PO SCH (08:19)
[2019-04-01 08:20] VITALS: BP_SYST 105
[2019-04-01] MEDS: amiodarone 200mg tablet PO SCH (08:20)
[2019-04-01] MEDS: magnesium Cl slow-release 64mg tablet PO SCH (08:20)
[2019-04-01] MEDS: potassium Cl 20 mEq SR tablet PO SCH (08:20)
[2019-04-01] MEDS: metoprolol tartrate 50mg tablet PO SCH (08:20)
[2019-04-01] MEDS: metoprolol tartrate 25mg tablet PO SCH (09:25)
[2019-04-01] MEDS ORDERED: FURO-150 PO (10:29)
[2019-04-01] MEDS ORDERED: COL100C PO (10:29)
[2019-04-01] MEDS ORDERED: tamsulosin capsule PO (10:29)
[2019-04-01] MEDS ORDERED: METO50TA16 PO (10:29)
[2019-04-01] MEDS ORDERED: OXYC-658 PO (10:29)
[2019-04-01] MEDS ORDERED: ATOR10TA PO (10:29)
[2019-04-01] MEDS ORDERED: APIX5TAB3 PO (10:29)
[2019-04-01] MEDS ORDERED: POTA10TA36 PO (10:29)
[2019-04-01] MEDS ORDERED: AMIO200T40 PO (10:29)
[2019-04-01] MEDS ORDERED: furosemide 20 MG/2 ML vial IV ONE (10:35)
--- NOTE | 2019-04-01 14:24 | NUR ---
IV removed, tip intact. Pt given DC instructions. All questions answered. Pt assisted to POV with tech. All known pt property returned to pt.
== END 2019-04-01 13:57 | disposition home or self-care (01) | DRG 234 ==
LOC: ER 14:40 → MED 3N 17:10 → ICU 2S 17:57 → MED 3N 03-28 14:45
PROVIDERS: ADMIT Family Medicine; ATTEND Thoracic Surgery (Cardiothoracic Vascular Surgery)
PROC: 02100Z9 Bypass Coronary Artery, One Artery from Left Internal Mammary, Open Approach (ICD-10-PCS; 2019-03-26)
PROC: 4A023N7 Measurement of Cardiac Sampling and Pressure, Left Heart, Percutaneous Approach (ICD-10-PCS; 2019-03-26)
PROC: 021109W Bypass Coronary Artery, Two Arteries from Aorta with Autologous Venous Tissue, Open Approach (ICD-10-PCS; 2019-03-26)
PROC: 06BP4ZZ Excision of Right Saphenous Vein, Percutaneous Endoscopic Approach (ICD-10-PCS; 2019-03-26)
PROC: 30233R1 Transfusion of Nonautologous Platelets into Peripheral Vein, Percutaneous Approach (ICD-10-PCS; 2019-03-26)
PROC: 02HV33Z Insertion of Infusion Device into Superior Vena Cava, Percutaneous Approach (ICD-10-PCS; 2019-03-26)
PROC: 02HQ32Z Insertion of Monitoring Device into Right Pulmonary Artery, Percutaneous Approach (ICD-10-PCS; 2019-03-26)
PROC: 4A133B3 Monitoring of Arterial Pressure, Pulmonary, Percutaneous Approach (ICD-10-PCS; 2019-03-26)
PROC: 4A1239Z Monitoring of Cardiac Output, Percutaneous Approach (ICD-10-PCS; 2019-03-26)
PROC: B2111ZZ Fluoroscopy of Multiple Coronary Arteries using Low Osmolar Contrast (ICD-10-PCS; 2019-03-26)
PROC: B2151ZZ Fluoroscopy of Left Heart using Low Osmolar Contrast (ICD-10-PCS; 2019-03-26)
PROC: B3131ZZ Fluoroscopy of Right Common Carotid Artery using Low Osmolar Contrast (ICD-10-PCS; 2019-03-26)
PROC: B3161ZZ Fluoroscopy of Right Internal Carotid Artery using Low Osmolar Contrast (ICD-10-PCS; 2019-03-26)
PROC: B3191ZZ Fluoroscopy of Right External Carotid Artery using Low Osmolar Contrast (ICD-10-PCS; 2019-03-26)
PROC: B31N1ZZ Fluoroscopy of Other Upper Arteries using Low Osmolar Contrast (ICD-10-PCS; 2019-03-26)
PROC: B3111ZZ Fluoroscopy of Right Brachiocephalic-Subclavian Artery using Low Osmolar Contrast (ICD-10-PCS; 2019-03-26)
PROC: B24BZZ4 Ultrasonography of Heart with Aorta, Transesophageal (ICD-10-PCS; 2019-03-26)
PROC: 5A1221Z Performance of Cardiac Output, Continuous (ICD-10-PCS; 2019-03-26)
PROC: 30233M1 Transfusion of Nonautologous Plasma Cryoprecipitate into Peripheral Vein, Percutaneous Approach (ICD-10-PCS; principal; 2019-03-26 19:21)
PROC: 30233R1 Transfusion of Nonautologous Platelets into Peripheral Vein, Percutaneous Approach (ICD-10-PCS; 2019-03-27)
PROC: 30233N1 Transfusion of Nonautologous Red Blood Cells into Peripheral Vein, Percutaneous Approach (ICD-10-PCS; 2019-03-27)
PROC: 30233N1 Transfusion of Nonautologous Red Blood Cells into Peripheral Vein, Percutaneous Approach (ICD-10-PCS; 2019-03-28)
PROC: 0W993ZZ Drainage of Right Pleural Cavity, Percutaneous Approach (ICD-10-PCS; 2019-03-30)
DX: I21.4 Non-ST elevation (NSTEMI) myocardial infarction (principal); D68.9 Coagulation defect, unspecified; J91.8 Pleural effusion in other conditions classified elsewhere; E78.5 Hyperlipidemia, unspecified; F17.210 Nicotine dependence, cigarettes, uncomplicated; I10 Essential (primary) hypertension; I25.110 Atherosclerotic heart disease of native coronary artery with unstable angina pectoris; I25.5 Ischemic cardiomyopathy; I45.10 Unspecified right bundle-branch block; I48.91 Unspecified atrial fibrillation; F10.10 Alcohol abuse, uncomplicated; R01.1 Cardiac murmur, unspecified; R11.2 Nausea with vomiting, unspecified; I73.9 Peripheral vascular disease, unspecified; X58.XXXA Exposure to other specified factors, initial encounter; Y92.238 Other place in hospital as the place of occurrence of the external cause; S70.11XA Contusion of right thigh, initial encounter; Z79.02 Long term (current) use of antithrombotics/antiplatelets; I25.2 Old myocardial infarction; Z82.49 Family history of ischemic heart disease and other diseases of the circulatory system; Z90.49 Acquired absence of other specified parts of digestive tract; Z98.1 Arthrodesis status; Z80.9 Family history of malignant neoplasm, unspecified; Z71.6 Tobacco abuse counseling; Z79.899 Other long term (current) drug therapy; Z71.41 Alcohol abuse counseling and surveillance of alcoholic; Y93.89 Activity, other specified; Y99.8 Other external cause status
CPT/HCPCS: 0232T; 32555; 36222; 36225; 36430; 93312; 93325; 93459; 96365; 96375; 99285; Z7506; Z7508; 36415; 36600; 71045; 76882; 80048; 80053; 80076; 82330; 82435; 82803; 82947; 82948; 83735; 83880; 84100; 84132; 84295; 84484; 85018; 85025; 85347; 85384; 85576; 85610; 85730; 86885; 86900; 86901; 86920; 87040; 87070; 93005; 93308; 93880; 94002; 94003; 94640; 94667; 94668; 94760; 97110; 97116; 97162; 97530; 99152; A4620; A6255; A6257; A6258; A6402; A6449; A7000; A7048; C1729; C1751; C1769; G0378; J0282; J0690; J1644; J1815; J1885; J1940; J2001; J2150; J2250; J2270; J2370; J2405; J2440; J2597; J2704; J2720; J2765; J2795; J2930; J3010; J3370; J3475; J3480; J3490; J7030; J7060; J7120; P9012; P9016; P9035; P9045; P9047; Q9967

== ENCOUNTER 2021-10-25 16:23 | Inpatient (IN) | payer BC ==
[~2021-10-25] VITALS: Ht 175.3 cm; Wt 75.5 kg
[~2021-10-25 16:23] MED LIST changes: +AMIO200T61 PO; +APIX5TAB3 PO; +ATOR10TA PO; +COL100C PO; -DOCU100C41 PO; -FLO0.4C PO; +FURO-150 PO; -NICO-631 TD; +OXYC-658 PO; +PANT40TA54 PO; +POTA10TA37 PO; -PRED20TA PO; -SIMV20TA5 PO; +TEMA15CA PO; +tamsulosin capsule PO
[2021-10-25 17:22] LABS: BASOPHILS % (AUTO) 0.5 % (0-1); EOSINOPHILS # (AUTO) 0.1 X10'3 (0-0.9); EOSINOPHILS % (AUTO) 2.3 % (0-6); HEMATOCRIT 22.2 % (42.0-52.0); HEMOGLOBIN 7.1 g/dl (14.0-17.9); LYMPHOCYTES # (AUTO) 1.6 X10'3 (1.1-4.8); LYMPHOCYTES % (AUTO) 27.8 % (21-51); MEAN CORPUSCULAR HEMOGLOBIN 29.9 PG (27.0-31.0); MEAN CORPUSCULAR HGB CONC 32.1 g/dL (33.0-36.5); MEAN CORPUSCULAR VOLUME 93.2 FL (78-98); MONOCYTES # (AUTO) 0.5 X10'3 (0-0.9); MONOCYTES % (AUTO) 9.5 % (2-12); NEUTROPHILS # (AUTO) 3.4 X10'3 (1.8-7.7); NEUTROPHILS % (AUTO) 59.9 % (42-75); PLATELET COUNT 222 X10'3 (140-440); RED BLOOD COUNT 2.39 X10'6 (4.70-6.10); RED CELL DISTRIBUTION WIDTH 18.1 % (11.5-14.5); WHITE BLOOD COUNT 5.7 X10'3 (4.5-11.0)
[2021-10-25 17:38] LABS: ALANINE AMINOTRANSFERASE 20 U/L (12-78); ALBUMIN 3.3 G/DL (3.4-5.0); ALBUMIN/GLOBULIN RATIO 0.8 (1.1-1.5); ALKALINE PHOSPHATASE 72 IU/L (46-116); ANION GAP 10 (8-16); ASPARTATE AMINO TRANSFERASE 14 U/L (10-37); BILIRUBIN,TOTAL 0.7 MG/DL (0.1-1.0); BLOOD UREA NITROGEN 12 MG/DL (7-18); BUN/CREATININE RATIO 13.5 (5.4-32.0); CALCIUM 8.3 MG/DL (8.5-10.1); CHLORIDE 103 MMOL/L (99-107); CREATININE 0.89 MG/DL (0.60-1.10); GLUCOSE 89 MG/DL (70-104); POTASSIUM 3.5 MMOL/L (3.5-5.1); SODIUM 140 MMOL/L (135-145); TOTAL CARBON DIOXIDE 26.6 MMOL/L (24-32); TOTAL PROTEIN 7.7 G/DL (6.4-8.2); eGFR 87 ML/MIN
[2021-10-25] MEDS ORDERED: pantoprazole 40MG/D5 100ML BAG 100 ML IV STA (18:41)
[2021-10-25] MEDS ORDERED: normal saline 1000ML IV soln IV ONE (18:45)
[2021-10-25] MEDS ORDERED: pantoprazole 40MG/NS 100ML BAG 100 ML IV STA (18:45)
[2021-10-25 19:47] LABS: APTT 24 SECONDS (22-32)
[2021-10-25] MEDS ORDERED: temazepam 15mg capsule PO PRN (21:00)
[2021-10-25] MEDS ORDERED: mag hydrox/Alum hydrox/simeth 30ml oral suspension PO PRN (21:55)
[2021-10-25] MEDS ORDERED: magnesium hydroxide 30ml (MOM) UD suspension PO PRN (21:55)
[2021-10-25] MEDS ORDERED: bisacodyl 10mg suppository rectal RC PRN (21:55)
[2021-10-25] MEDS ORDERED: ondansetron 4mg rapidly disintigrating tab PO PRN (21:55)
[2021-10-25] MEDS ORDERED: acetaminophen 325mg tablet PO PRN ×2 (21:55)
[2021-10-25] MEDS ORDERED: ondansetron/PF 4mg/2ml inj IV PRN (21:55)
[2021-10-25] MEDS ORDERED: diphenhydrAMINE 25mg capsule PO PRN (21:55)
[2021-10-25] MEDS ORDERED: morphine 2 MG/ML inj. syringe IV PRN (21:55)
[2021-10-25] MEDS ORDERED: acetaminophen 650mg rectal suppository RC PRN (21:55)
[2021-10-25] MEDS ORDERED: diphenhydrAMINE 50 mg/ml inj IV PRN (21:55)
[2021-10-25 22:20] LABS: HEMOGLOBIN A1C 4.8 % (4.5-6.2)
[2021-10-25] MEDS ORDERED: HYDROcodone/acetaminophen 5mg/325mg tablet PO ONE (22:20)
[2021-10-25 22:22] LABS: D-DIMER 2.03 MG/L FEU (0-0.50)
[2021-10-25 22:28] LABS: CREATINE KINASE 42 U/L (39-308); MAGNESIUM 2.4 MG/DL (1.5-2.4); PHOSPHORUS 3.3 MG/DL (2.3-4.5)
[2021-10-25 22:44] VITALS: BP 132/48
[2021-10-25 22:45] VITALS: BP 139/73
[2021-10-25 23:45] VITALS: BP 120/52
[2021-10-26] VITALS (9 sets, daily range): BP systolic 102–157; BP diastolic 37–82
[2021-10-26 00:30] LABS: COLOR,URINE YELLOW (Yellow); GLUCOSE, URINE NEGATIVE (Neg); KETONES,URINE NEGATIVE (Neg); LEUKOCYTE ESTERASE ,URINE SMALL (Neg); NITRITES, URINE POSITIVE (Neg); OCCULT BLOOD,URINE TRACE-INTACT (Neg); PROTEIN,URINE NEGATIVE (Neg); UROBILINOGEN,URINE 0.2 E.U/dL (0.2-1.0)
[2021-10-26 00:39] LABS: UA COLLECTION TYPE URINAL
[2021-10-26 00:40] LABS: BACTERIA,URINE FEW /HPF (Neg); CLARITY,URINE SLIGHTLY CLOUDY (Clear); RBC,URINE 0-2 /HPF (0-2); WBC,URINE 20-30 /HPF (0-4)
[2021-10-26 00:41] LABS: SQUAMOUS EPITHELIAL CELL,UR FEW /LPF (FEW)
[2021-10-26 00:52] LABS: URINE AMPHETAMINE SCREEN NEGATIVE (Neg); URINE BARBITUATE SCREEN NEGATIVE (Neg); URINE BENZODIAZEPINES SCREEN NEGATIVE (Neg); URINE CANNABINOID SCREEN POSITIVE (Neg); URINE COCAINE SCREEN NEGATIVE (Neg); URINE METHADONE SCREEN NEGATIVE (Neg); URINE OPIATE SCREEN NEGATIVE (Neg); URINE PHENCYCLIDINE SCREEN NEGATIVE (Neg)
[2021-10-26] MEDS: dextrose 5%-1/2 normal saline 1,000 ML IV SCH ×3 (01:30→12:44)
[2021-10-26] MEDS: vancomycin/NS 1 GM ADD-VANTAGE 250 ML IV SCH ×3 (02:22→23:06)
[2021-10-26] MEDS ORDERED: ATOR40TA PO (03:22)
[2021-10-26] MEDS ORDERED: PANT-47 PO (03:22)
[2021-10-26] MEDS ORDERED: CLOP75TA15 PO (03:22)
[2021-10-26] MEDS ORDERED: CARV-50 PO (03:22)
[2021-10-26] MEDS ORDERED: LISI-644 PO (03:22)
[2021-10-26] MEDS ORDERED: GABA300C PO (03:22)
[2021-10-26] MEDS: HYDROcodone/acetaminophen 5mg/325mg tablet PO PRN ×4 (03:43→20:49)
[2021-10-26 06:30] LABS: BASOPHILS % (AUTO) 0.6 % (0-1); EOSINOPHILS # (AUTO) 0.1 X10'3 (0-0.9); EOSINOPHILS % (AUTO) 2.5 % (0-6); LYMPHOCYTES # (AUTO) 1.5 X10'3 (1.1-4.8); LYMPHOCYTES % (AUTO) 35.1 % (21-51); MEAN CORPUSCULAR HEMOGLOBIN 29.9 PG (27.0-31.0); MEAN CORPUSCULAR HGB CONC 33.1 g/dL (33.0-36.5); MEAN CORPUSCULAR VOLUME 90.5 FL (78-98); MEAN PLATELET VOLUME 8.1 FL (7.4-10.4); MONOCYTES # (AUTO) 0.4 X10'3 (0-0.9); NEUTROPHILS # (AUTO) 2.3 X10'3 (1.8-7.7); NEUTROPHILS % (AUTO) 52.8 % (42-75); PLATELET COUNT 160 X10'3 (140-440); RED BLOOD COUNT 2.34 X10'6 (4.70-6.10); RED CELL DISTRIBUTION WIDTH 18.2 % (11.5-14.5); WHITE BLOOD COUNT 4.4 X10'3 (4.5-11.0)
[2021-10-26 06:34] LABS: ALANINE AMINOTRANSFERASE 12 U/L (12-78); ALBUMIN 2.6 G/DL (3.4-5.0); ALBUMIN/GLOBULIN RATIO 0.7 (1.1-1.5); ALKALINE PHOSPHATASE 63 IU/L (46-116); ANION GAP 8 (8-16); ASPARTATE AMINO TRANSFERASE 13 U/L (10-37); BILIRUBIN,TOTAL 0.9 MG/DL (0.1-1.0); BLOOD UREA NITROGEN 9 MG/DL (7-18); BUN/CREATININE RATIO 11.3 (5.4-32.0); CALCIUM 7.6 MG/DL (8.5-10.1); CHLORIDE 109 MMOL/L (99-107); GLUCOSE 107 MG/DL (70-104); POTASSIUM 3.2 MMOL/L (3.5-5.1); SODIUM 141 MMOL/L (135-145); TOTAL CARBON DIOXIDE 24.2 MMOL/L (24-32); TOTAL PROTEIN 6.2 G/DL (6.4-8.2); eGFR > 90 ML/MIN
[2021-10-26 06:38] LABS: CHOL/HDL RATIO 2.4 (0.00-4.99); CHOLESTEROL 72 MG/DL (0-200); HDL CHOLESTEROL 30 MG/DL (35-60); LDL CHOLESTEROL 32 MG/DL (50-100); TRIGLYCERIDES 92 MG/DL (20-135)
[2021-10-26 06:40] LABS: HEMATOCRIT 21.2 % (42.0-52.0)
[2021-10-26] MEDS: docusate sod 100mg capsule PO SCH ×2 (07:19→20:49)
[2021-10-26] MEDS: pantoprazole 40MG/NS 100ML BAG 100 ML IV SCH ×4 (07:22→23:06)
[2021-10-26] MEDS ORDERED: piperacillin/tazo 4.5gm/100ml 100 ML IV SCH (08:00)
[2021-10-26] MEDS ORDERED: iohexol 350MG/ML 100ml bottle IV ONE (09:57)
[2021-10-26 09:59] LABS: % IRON SATURATION 11 % (11-46); IRON 31 UG/DL (53-167); TOTAL IRON BINDING CAPACITY 279 UG/DL (259-388)
[2021-10-26] MEDS ORDERED: FLU VACC QS2021-22(6MOS UP)/PF 60 MCG/0.5 ML SYRINGE IM ONE (10:00)
[2021-10-26] MEDS: piperacillin/tazo 4.5gm/100ml 100 ML IV SCH ×3 (10:00→16:00)
[2021-10-26] MEDS ORDERED: CARV6.253 PO (10:52)
[2021-10-26] MEDS ORDERED: APIX5TAB3 PO (10:52)
--- NOTE | 2021-10-26 12:15 | NUR ---
Malnutrition consult re: "unable to eat but one time a day". Pt reports 14-23 lb wt loss with decreased appetite per malnutrition risk screen with RN. Most recent scaled wt hx in EMR is 74.7 kg taken 03/27/19 with bed scale, current scaled wt is 75.5 kg (103% IBW). Pt currently NPO though notably would consume the three meals provided daily at previous admit. Pt with no documented significant decrease in muscle strength and with 3+ groin edema. Pt appears well developed well nourished per physician notes. Pt currently lacks a minimum of two criteria for malnutrition. Will continue to follow and further monitor qualifying criteria for malnutrition. Addendum: 10/26/21 at [address] Amended: Links added.
[2021-10-26 14:35] LABS: BASOPHILS % (AUTO) 0.6 % (0-1); EOSINOPHILS # (AUTO) 0.1 X10'3 (0-0.9); EOSINOPHILS % (AUTO) 2.3 % (0-6); LYMPHOCYTES # (AUTO) 1.2 X10'3 (1.1-4.8); LYMPHOCYTES % (AUTO) 32.2 % (21-51); MEAN CORPUSCULAR HEMOGLOBIN 29.5 PG (27.0-31.0); MEAN CORPUSCULAR VOLUME 92.3 FL (78-98); MEAN PLATELET VOLUME 7.9 FL (7.4-10.4); MONOCYTES # (AUTO) 0.3 X10'3 (0-0.9); MONOCYTES % (AUTO) 9.5 % (2-12); NEUTROPHILS % (AUTO) 55.4 % (42-75); PLATELET COUNT 129 X10'3 (140-440); RED BLOOD COUNT 1.87 X10'6 (4.70-6.10); RED CELL DISTRIBUTION WIDTH 18.5 % (11.5-14.5); WHITE BLOOD COUNT 3.6 X10'3 (4.5-11.0)
[2021-10-26 14:37] LABS: HEMATOCRIT 17.3 % (42.0-52.0); HEMOGLOBIN 5.5 g/dl (14.0-17.9)
[2021-10-26] MEDS ORDERED: octreotide inj. 1,250 MCG in normal saline 250ml IV soln 243.75 ML IV SCH (16:05)
[2021-10-26 19:55] LABS: HEMATOCRIT 22.9 % (42.0-52.0); HEMOGLOBIN 7.3 g/dl (14.0-17.9); MEAN CORPUSCULAR HEMOGLOBIN 29.2 PG (27.0-31.0); MEAN CORPUSCULAR HGB CONC 31.8 g/dL (33.0-36.5); MEAN PLATELET VOLUME 7.8 FL (7.4-10.4); PLATELET COUNT 138 X10'3 (140-440); RED BLOOD COUNT 2.49 X10'6 (4.70-6.10); RED CELL DISTRIBUTION WIDTH 17.8 % (11.5-14.5); WHITE BLOOD COUNT 4.4 X10'3 (4.5-11.0)
[2021-10-27] MEDS: morphine 2 MG/ML inj. syringe IV PRN ×3 (01:00→23:13)
[2021-10-27 02:00] VITALS: BP 134/59
[2021-10-27] MEDS: pantoprazole 40MG/NS 100ML BAG 100 ML IV SCH ×5 (03:51→21:01)
[2021-10-27 06:00] VITALS: BP 129/65
[2021-10-27 07:33] LABS: BASOPHILS % (AUTO) 0.4 % (0-1); EOSINOPHILS # (AUTO) 0.2 X10'3 (0-0.9); EOSINOPHILS % (AUTO) 2.8 % (0-6); HEMATOCRIT 24.3 % (42.0-52.0); LYMPHOCYTES # (AUTO) 1.1 X10'3 (1.1-4.8); LYMPHOCYTES % (AUTO) 20.3 % (21-51); MEAN CORPUSCULAR HEMOGLOBIN 29.9 PG (27.0-31.0); MEAN CORPUSCULAR VOLUME 90.6 FL (78-98); MEAN PLATELET VOLUME 8.3 FL (7.4-10.4); MONOCYTES # (AUTO) 0.5 X10'3 (0-0.9); MONOCYTES % (AUTO) 9.4 % (2-12); NEUTROPHILS # (AUTO) 3.7 X10'3 (1.8-7.7); NEUTROPHILS % (AUTO) 67.1 % (42-75); PLATELET COUNT 161 X10'3 (140-440); RED BLOOD COUNT 2.69 X10'6 (4.70-6.10); RED CELL DISTRIBUTION WIDTH 17.2 % (11.5-14.5); WHITE BLOOD COUNT 5.6 X10'3 (4.5-11.0)
[2021-10-27 08:03] LABS: ALANINE AMINOTRANSFERASE 12 U/L (12-78); ALBUMIN 2.7 G/DL (3.4-5.0); ALBUMIN/GLOBULIN RATIO 0.7 (1.1-1.5); ALKALINE PHOSPHATASE 69 IU/L (46-116); ANION GAP 11 (8-16); ASPARTATE AMINO TRANSFERASE 14 U/L (10-37); BILIRUBIN,TOTAL 1.4 MG/DL (0.1-1.0); BLOOD UREA NITROGEN 5 MG/DL (7-18); BUN/CREATININE RATIO 6.3 (5.4-32.0); CALCIUM 7.9 MG/DL (8.5-10.1); CHLORIDE 107 MMOL/L (99-107); GLUCOSE 150 MG/DL (70-104); POTASSIUM 3.3 MMOL/L (3.5-5.1); SODIUM 139 MMOL/L (135-145); TOTAL CARBON DIOXIDE 20.9 MMOL/L (24-32); TOTAL PROTEIN 6.4 G/DL (6.4-8.2); eGFR > 90 ML/MIN
[2021-10-27] MEDS: piperacillin/tazo 4.5gm/100ml 100 ML IV SCH ×3 (09:23→23:31)
[2021-10-27] MEDS: docusate sod 100mg capsule PO SCH ×2 (09:24→19:40)
[2021-10-27] MEDS ORDERED: VANCOMYCIN LEVEL IV ONE (10:30)
[2021-10-27] MEDS: vancomycin/NS 1 GM ADD-VANTAGE 250 ML IV SCH (11:36)
[2021-10-27 12:10] VITALS: BP 133/65
[2021-10-27] MEDS ORDERED: vancomycin/NS 500MG ADD-VANT 100 ML IV ONE (13:00)
[2021-10-27] MEDS: dextrose 5%-1/2 normal saline 1,000 ML IV SCH ×2 (14:05→22:30)
[2021-10-27] MEDS: HYDROcodone/acetaminophen 5mg/325mg tablet PO PRN ×2 (14:41→19:41)
[2021-10-27] MEDS ORDERED: PEG 3350/Na sulf,bicarb,Cl/KCl oral sol 4 liter bottle PO ONE (15:10)
[2021-10-27] MEDS: cyclobenzaprine 10mg tablet PO PRN (15:35)
[2021-10-27 18:00] VITALS: BP 142/71
[2021-10-27 22:00] VITALS: BP 150/66
[2021-10-28] VITALS (9 sets, daily range): BP systolic 112–139; BP diastolic 43–86
[2021-10-28] MEDS ORDERED: potassium Cl 40MEQ/1/2NS 520ml 520 ML IV PRN (04:05)
[2021-10-28] MEDS ORDERED: magnesium 4gm in 100ml NS 100 ML IV PRN (04:05)
[2021-10-28] MEDS ORDERED: magnesium Cl slow-release 64mg tablet PO PRN (04:05)
[2021-10-28] MEDS ORDERED: potassium Cl 20 mEq SR tablet PO PRN ×2 (04:05)
[2021-10-28 06:55] LABS: BASOPHILS % (AUTO) 0.6 % (0-1); EOSINOPHILS # (AUTO) 0.2 X10'3 (0-0.9); EOSINOPHILS % (AUTO) 4.2 % (0-6); HEMATOCRIT 23.5 % (42.0-52.0); HEMOGLOBIN 7.7 g/dl (14.0-17.9); LYMPHOCYTES # (AUTO) 1.3 X10'3 (1.1-4.8); LYMPHOCYTES % (AUTO) 31.8 % (21-51); MEAN CORPUSCULAR HEMOGLOBIN 30.1 PG (27.0-31.0); MEAN CORPUSCULAR HGB CONC 32.9 g/dL (33.0-36.5); MEAN CORPUSCULAR VOLUME 91.7 FL (78-98); MONOCYTES # (AUTO) 0.5 X10'3 (0-0.9); MONOCYTES % (AUTO) 12.1 % (2-12); NEUTROPHILS # (AUTO) 2.1 X10'3 (1.8-7.7); NEUTROPHILS % (AUTO) 51.3 % (42-75); PLATELET COUNT 145 X10'3 (140-440); RED BLOOD COUNT 2.56 X10'6 (4.70-6.10); RED CELL DISTRIBUTION WIDTH 17.3 % (11.5-14.5); WHITE BLOOD COUNT 4.1 X10'3 (4.5-11.0)
[2021-10-28 07:31] LABS: ALBUMIN 2.5 G/DL (3.4-5.0); ALBUMIN/GLOBULIN RATIO 0.7 (1.1-1.5); ALKALINE PHOSPHATASE 59 IU/L (46-116); ANION GAP 10 (8-16); ASPARTATE AMINO TRANSFERASE 13 U/L (10-37); BLOOD UREA NITROGEN 4 MG/DL (7-18); BUN/CREATININE RATIO 4.1 (5.4-32.0); CALCIUM 7.8 MG/DL (8.5-10.1); CHLORIDE 107 MMOL/L (99-107); CREATININE 0.97 MG/DL (0.60-1.10); GLUCOSE 110 MG/DL (70-104); MAGNESIUM 2.1 MG/DL (1.5-2.4); POTASSIUM 3.2 MMOL/L (3.5-5.1); SODIUM 142 MMOL/L (135-145); TOTAL PROTEIN 6.2 G/DL (6.4-8.2); eGFR 78 ML/MIN
[2021-10-28 07:48] LABS: ALANINE AMINOTRANSFERASE < 6 U/L (12-78)
[2021-10-28] MEDS: docusate sod 100mg capsule PO SCH (08:00)
[2021-10-28] MEDS ORDERED: K and/or MAG REPLACEMENT MC SCH (08:00)
[2021-10-28] MEDS: piperacillin/tazo 4.5gm/100ml 100 ML IV SCH ×2 (08:47→16:00)
[2021-10-28] MEDS: pantoprazole 40MG/NS 100ML BAG 100 ML IV SCH (08:47)
[2021-10-28] MEDS: HYDROcodone/acetaminophen 5mg/325mg tablet PO PRN (09:00)
[2021-10-28] MEDS: dextrose 5%-1/2 normal saline 1,000 ML IV SCH (13:06)
[2021-10-28] MEDS ORDERED: fentaNYL/PF 50MCG/1 ML 2ML syringe ONE (14:22)
[2021-10-28] MEDS ORDERED: LIDOcaine Viscous 15ml cup ONE (14:23)
[2021-10-28] MEDS ORDERED: MIDAZolam 1 MG/ML 5ML VIAL ONE ×2 (14:23)
[2021-10-28] MEDS ORDERED: levoFLOXACIN 250mg tablet PO ONE (15:40)
[2021-10-28] MEDS: cyclobenzaprine 10mg tablet PO PRN (17:41)
[2021-10-28] MEDS ORDERED: LEVO500T90 PO (17:53)
[2021-10-28] MEDS ORDERED: FERR325T28 PO (17:53)
--- NOTE | 2021-10-28 20:31 | NUR ---
PATIENT FINISHED HIS IV ABX. DISCHARGE PLAN GONE OVER AND PATIENT EDUCATED TO MAKE FU ALIE WITH PCP. PIVS REMOVED AND PATIENT WHEELED OUT BY WC WITH DRIVING POV
[2021-10-28] MEDS ORDERED: VANCOMYCIN LEVEL IV ONE (22:30)
[2021-10-29] MEDS ORDERED: levoFLOXACIN 250mg tablet PO SCH (11:00)
== END 2021-10-28 20:35 | disposition home or self-care (01) | DRG 368 ==
LOC: ER 16:23 → ED HOLD 21:59 → MED 3N 10-26 03:11
PROVIDERS: ADMIT Family Medicine; ATTEND Internal Medicine
PROC: 30233N1 Transfusion of Nonautologous Red Blood Cells into Peripheral Vein, Percutaneous Approach (ICD-10-PCS; 2021-10-25)
PROC: 3E02340 Introduction of Influenza Vaccine into Muscle, Percutaneous Approach (ICD-10-PCS; 2021-10-26)
PROC: B32T1ZZ Computerized Tomography (CT Scan) of Left Pulmonary Artery using Low Osmolar Contrast (ICD-10-PCS; 2021-10-26)
PROC: B3201ZZ Computerized Tomography (CT Scan) of Thoracic Aorta using Low Osmolar Contrast (ICD-10-PCS; 2021-10-26)
PROC: B32S1ZZ Computerized Tomography (CT Scan) of Right Pulmonary Artery using Low Osmolar Contrast (ICD-10-PCS; 2021-10-26)
PROC: 0DBN8ZZ Excision of Sigmoid Colon, Via Natural or Artificial Opening Endoscopic (ICD-10-PCS; principal; 2021-10-28)
PROC: 0DB48ZX Excision of Esophagogastric Junction, Via Natural or Artificial Opening Endoscopic, Diagnostic (ICD-10-PCS; 2021-10-28)
PROC: 0DB68ZX Excision of Stomach, Via Natural or Artificial Opening Endoscopic, Diagnostic (ICD-10-PCS; 2021-10-28)
DX: K21.01 Gastro-esophageal reflux disease with esophagitis, with bleeding (principal); I50.33 Acute on chronic diastolic (congestive) heart failure; K29.71 Gastritis, unspecified, with bleeding; K57.31 Diverticulosis of large intestine without perforation or abscess with bleeding; N39.0 Urinary tract infection, site not specified; L03.314 Cellulitis of groin; F12.90 Cannabis use, unspecified, uncomplicated; I11.0 Hypertensive heart disease with heart failure; G43.909 Migraine, unspecified, not intractable, without status migrainosus; I73.9 Peripheral vascular disease, unspecified; S30.1XXA Contusion of abdominal wall, initial encounter; D50.0 Iron deficiency anemia secondary to blood loss (chronic); K44.9 Diaphragmatic hernia without obstruction or gangrene; K63.5 Polyp of colon; X58.XXXA Exposure to other specified factors, initial encounter; R82.71 Bacteriuria; B96.5 Pseudomonas (aeruginosa) (mallei) (pseudomallei) as the cause of diseases classified elsewhere; I25.10 Atherosclerotic heart disease of native coronary artery without angina pectoris; I25.2 Old myocardial infarction; Z86.73 Personal history of transient ischemic attack (TIA), and cerebral infarction without residual deficits; Z87.891 Personal history of nicotine dependence; Z95.1 Presence of aortocoronary bypass graft; Z23 Encounter for immunization; Z79.899 Other long term (current) drug therapy; Y93.89 Activity, other specified; Y92.89 Other specified places as the place of occurrence of the external cause; Y99.8 Other external cause status; E87.6 Hypokalemia
CPT/HCPCS: 36415; 36430; 43239; 45385; 71045; 71275; 80053; 80061; 80202; 80305; 81001; 82550; 83036; 83520; 83540; 83550; 83735; 83880; 84100; 84443; 84484; 85025; 85027; 85379; 85610; 85730; 86885; 86900; 86901; 86920; 87077; 87081; 87088; 87186; 93005; 96374; 99152; 99153; 99285; A4620; C1773; C9113; G0378; J2250; J2270; J2354; J2405; J2543; J3010; J3370; J7030; J7040; J7042; J7050; P9016; Q9967

== ENCOUNTER 2021-12-25 14:31 | Day surgery (SDC) | payer BC ==
[2021-12-20 16:18] LABS: BASOPHILS % (AUTO) 0.7 % (0-1); EOSINOPHILS # (AUTO) 0.2 X10'3 (0-0.9); EOSINOPHILS % (AUTO) 2.9 % (0-6); HEMATOCRIT 35.3 % (42.0-52.0); HEMOGLOBIN 11.5 g/dl (14.0-17.9); LYMPHOCYTES # (AUTO) 2.6 X10'3 (1.1-4.8); MEAN CORPUSCULAR HEMOGLOBIN 32.1 PG (27.0-31.0); MEAN CORPUSCULAR HGB CONC 32.5 g/dL (33.0-36.5); MEAN CORPUSCULAR VOLUME 98.7 FL (78-98); MEAN PLATELET VOLUME 7.5 FL (7.4-10.4); MONOCYTES # (AUTO) 0.5 X10'3 (0-0.9); MONOCYTES % (AUTO) 9.6 % (2-12); NEUTROPHILS # (AUTO) 2.2 X10'3 (1.8-7.7); NEUTROPHILS % (AUTO) 39.8 % (42-75); PLATELET COUNT 170 X10'3 (140-440); RED BLOOD COUNT 3.58 X10'6 (4.70-6.10); RED CELL DISTRIBUTION WIDTH 16.1 % (11.5-14.5); WHITE BLOOD COUNT 5.4 X10'3 (4.5-11.0)
[2021-12-20 16:30] LABS: APTT 22 SECONDS (22-32)
[2021-12-20 16:34] LABS: ALBUMIN 4.2 G/DL (3.4-5.0); ANION GAP 14 (8-16); BLOOD UREA NITROGEN 14 MG/DL (7-18); BUN/CREATININE RATIO 16.5 (5.4-32.0); CALCIUM 8.5 MG/DL (8.5-10.1); CHLORIDE 105 MMOL/L (99-107); CREATININE 0.85 MG/DL (0.60-1.10); GLUCOSE 89 MG/DL (70-104); POTASSIUM 4.1 MMOL/L (3.5-5.1); SODIUM 141 MMOL/L (135-145); TOTAL CARBON DIOXIDE 21.9 MMOL/L (24-32); eGFR > 90 ML/MIN
[2021-12-25] VITALS (7 sets, daily range): BP systolic 108–137; BP diastolic 36–70
[~2021-12-25] VITALS: Ht 175.3 cm; Wt 75.0 kg
[~2021-12-25 14:31] MED LIST changes: -AMIO200T61 PO; -ATOR10TA PO; +ATOR40TA PO; +CARV6.253 PO; +CLOP75TA15 PO; -CLOP75TA33 PO; -COL100C PO; -FURO-150 PO; +LISI-644 PO; -METO50TA16 PO; -OXYC-658 PO; +PANT-47 PO; -PANT40TA54 PO; -POTA10TA37 PO; -TEMA15CA PO; -tamsulosin capsule PO
[2021-12-25] MEDS ORDERED: diphenhydrAMINE 25mg capsule PO PRN (14:45)
[2021-12-25] MEDS ORDERED: normal saline 1,000 ML IV SCH (14:45)
[2021-12-25] MEDS ORDERED: LORazepam 0.5 MG tablet PO PRN (14:45)
[2021-12-25] MEDS ORDERED: SACU1TAB (14:58)
[2021-12-25] MEDS ORDERED: TRAZ-251 PO (14:58)
[2021-12-25] MEDS ORDERED: ATOR40TA72 PO (14:58)
[2021-12-25] MEDS ORDERED: SPIR25TA5 PO (14:58)
[2021-12-25] MEDS ORDERED: midazolam 1 mg/ML 2ml injection ONE (16:29)
[2021-12-25] MEDS ORDERED: verapamil 2.5 mg/ml inj IV ONE (16:29)
[2021-12-25] MEDS ORDERED: nitroGLYCERIN-Tridil 50MG/D5W 250 ML IV ONE (16:29)
[2021-12-25] MEDS ORDERED: fentaNYL/PF 50MCG/1 ML 2ML syringe ONE (16:30)
[2021-12-25] MEDS ORDERED: LIDOcaine 1% (10mg/ml)w/preservative injection 20ml MDV ONE (16:30)
[2021-12-25] MEDS ORDERED: iohexol 350MG/ML 100ml bottle IV ONE ×2 (16:30→18:02)
[2021-12-25] MEDS ORDERED: heparin 1,000unit/ml 10ml vial 10 ML ONE (16:30)
[2021-12-25] MEDS ORDERED: iohexol 350 MG/ML 50ML vial IV ONE (17:45)
[2021-12-25] MEDS ORDERED: normal saline 1000ml 1,000 ML IV SCH (19:05)
[2021-12-26 07:17] LABS: ISTAT HGB ART 9.9 g/dl (14.0-18.0); ISTAT Hct ART 29 %PCV (42-52); ISTAT O2 SATURATION ARTERIAL 96 % (95-98); ISTAT SOURCE BLNK
[2021-12-26 07:17] LABS: ISTAT Hct MIX 30 %PCV (42-52); ISTAT O2 SATURATION MIX VENOUS 62 % (60-80); ISTAT SOURCE VEN
== END 2021-12-25 21:20 | disposition home or self-care (01) ==
LOC: SSTAY O 14:31
PROVIDERS: ATTEND Internal Medicine Interventional Cardiology
DX: I35.0 Nonrheumatic aortic (valve) stenosis (principal); I25.10 Atherosclerotic heart disease of native coronary artery without angina pectoris; I11.0 Hypertensive heart disease with heart failure; I50.22 Chronic systolic (congestive) heart failure; I25.2 Old myocardial infarction; I48.91 Unspecified atrial fibrillation; I25.5 Ischemic cardiomyopathy; E78.5 Hyperlipidemia, unspecified; I65.23 Occlusion and stenosis of bilateral carotid arteries; I70.213 Atherosclerosis of native arteries of extremities with intermittent claudication, bilateral legs; Z86.73 Personal history of transient ischemic attack (TIA), and cerebral infarction without residual deficits; Z79.82 Long term (current) use of aspirin; Z79.84 Long term (current) use of oral hypoglycemic drugs; Z79.899 Other long term (current) drug therapy; Z87.891 Personal history of nicotine dependence
CPT/HCPCS: 36415; 76937; 80048; 82803; 85014; 85025; 85610; 85730; 93005; 93457; 99152; 99153; C1751; C1769; C1894; J1644; J2250; J3010; J3490; J7030; Q0163; Q9967; A4620; A5120; G0278

== ENCOUNTER 2022-02-18 11:11 | Emergency (ER) | payer BC ==
[~2022-02-18] VITALS: Ht 175.3 cm; Wt 79.5 kg
[~2022-02-18 11:11] MED LIST changes: -APIX5TAB3 PO; -ATOR40TA PO; +ATOR40TA72 PO; +SACU1TAB; +SPIR25TA5 PO; +TRAZ-251 PO
[2022-02-18] MEDS ORDERED: heparin 25,000 UNIT/250ml bag 250 ML IV SCH (15:05)
[2022-02-18] MEDS ORDERED: heparin 10,000 units/1 ML INJ IV ONE ×2 (15:05→15:15)
[2022-02-18] MEDS ORDERED: heparin 10,000 units/1 ML INJ IV PRN (15:05)
--- NOTE | 2022-02-18 19:08 | NUR ---
assisting RN with pt care, attempted report to nurse at [facility], they asked if I could call back shortly
--- NOTE | 2022-02-18 19:33 | NUR ---
GAVE REPORT TO TANIA FOUNTAIN RN, OVER THE PHONE
[2022-02-19 01:08] VITALS: BP 124/76
== END 2022-02-19 01:12 | disposition short-term general hospital (02) ==
LOC: ER 11:12
DX: M62.262 Nontraumatic ischemic infarction of muscle, left lower leg (principal); Z20.822 Contact with and (suspected) exposure to COVID-19; R06.02 Shortness of breath; I25.2 Old myocardial infarction; Z86.79 Personal history of other diseases of the circulatory system; Z87.19 Personal history of other diseases of the digestive system; Z95.0 Presence of cardiac pacemaker; Z95.5 Presence of coronary angioplasty implant and graft; Z88.5 Allergy status to narcotic agent; Z79.82 Long term (current) use of aspirin; Z79.899 Other long term (current) drug therapy
CPT/HCPCS: 36415; 85610; 85730; 87635; 93926; 93971; 96365; 96366; 99291; C9803; J1644

== ENCOUNTER 2022-02-26 10:05 | Outpatient (CLI) | payer BC ==
[2022-02-26 10:38] LABS: BASOPHILS % (AUTO) 0.8 % (0-1); EOSINOPHILS # (AUTO) 0.2 X10'3 (0-0.9); HEMATOCRIT 31.8 % (42.0-52.0); HEMOGLOBIN 10.2 g/dl (14.0-17.9); LYMPHOCYTES # (AUTO) 1.8 X10'3 (1.1-4.8); MEAN CORPUSCULAR HEMOGLOBIN 28.3 PG (27.0-31.0); MEAN CORPUSCULAR HGB CONC 32.1 g/dL (33.0-36.5); MEAN CORPUSCULAR VOLUME 88.3 FL (78-98); MEAN PLATELET VOLUME 8.5 FL (7.4-10.4); MONOCYTES # (AUTO) 0.5 X10'3 (0-0.9); NEUTROPHILS # (AUTO) 3.8 X10'3 (1.8-7.7); NEUTROPHILS % (AUTO) 60.2 % (42-75); PLATELET COUNT 156 X10'3 (140-440); RED CELL DISTRIBUTION WIDTH 16.6 % (11.5-14.5); WHITE BLOOD COUNT 6.4 X10'3 (4.5-11.0)
[2022-02-26 10:52] LABS: APTT 28 SECONDS (22-32)
[2022-02-26 10:53] LABS: ALANINE AMINOTRANSFERASE 20 U/L (12-78); ALBUMIN 3.5 G/DL (3.4-5.0); ALBUMIN/GLOBULIN RATIO 0.8 (1.1-1.5); ALKALINE PHOSPHATASE 80 IU/L (46-116); ANION GAP 13 (8-16); ASPARTATE AMINO TRANSFERASE 17 U/L (10-37); BILIRUBIN,TOTAL 0.8 MG/DL (0.1-1.0); BLOOD UREA NITROGEN 9 MG/DL (7-18); BUN/CREATININE RATIO 10.2 (5.4-32.0); CALCIUM 8.8 MG/DL (8.5-10.1); CHLORIDE 104 MMOL/L (99-107); CREATININE 0.88 MG/DL (0.60-1.10); GLUCOSE 108 MG/DL (70-104); POTASSIUM 3.7 MMOL/L (3.5-5.1); SODIUM 140 MMOL/L (135-145); TOTAL CARBON DIOXIDE 23.4 MMOL/L (24-32); eGFR 88 ML/MIN
[2022-02-26] MEDS ORDERED: IODIXANOL 320 MG/ML INFUS..BTL 100ML IV ONE (10:58)
[2022-02-26] MEDS ORDERED: IODIXANOL 320 MG/ML INFUS..BTL 50ML IV ONE (10:58)
[2022-02-26 12:25] LABS: ABG BASE EXCESS -4.9 mmol/L (-2.0-2.0); ABG HCO3 18.1 mmol/L (22.0-26.0); ABG OXYGEN SATURATION 97.1 % (94-97); ABG PCO2 (T) 27.1 mmHg (35.0-48.0); ABG PO2 (T) 94.5 mmHg (75.0-100.0); ALLEN'S TEST POSITIVE; FMetHb 0.2 % (0.0-1.5); TOTAL HEMOGLOBIN 10.6 G/dl (14.0-18.0)
== END 2022-02-26 23:59 | disposition home or self-care (01) ==
LOC: RAD 10:05
PROVIDERS: ATTEND Internal Medicine Cardiovascular Disease
DX: K40.90 Unilateral inguinal hernia, without obstruction or gangrene, not specified as recurrent (principal); N20.0 Calculus of kidney; I71.4 Abdominal aortic aneurysm, without rupture; R16.1 Splenomegaly, not elsewhere classified; I70.8 Atherosclerosis of other arteries; I70.201 Unspecified atherosclerosis of native arteries of extremities, right leg; I70.0 Atherosclerosis of aorta; R94.2 Abnormal results of pulmonary function studies; I51.7 Cardiomegaly; M47.818 Spondylosis without myelopathy or radiculopathy, sacral and sacrococcygeal region; I35.0 Nonrheumatic aortic (valve) stenosis; R06.02 Shortness of breath; I65.29 Occlusion and stenosis of unspecified carotid artery; Z90.49 Acquired absence of other specified parts of digestive tract
CPT/HCPCS: 36415; 36600; 71046; 71275; 74174; 80053; 82803; 85018; 85025; 85610; 85730; 87635; 94010; 94727; 94729; C9803; Q9967